=== PATIENT | male | born 1940 | race Caucasian/White ===

== ENCOUNTER 2019-05-20 07:39 | Emergency (ER) | payer MEDICARE, OTHER ==
[~2019-05-20] VITALS: Ht 172.7 cm; Wt 192.8 kg
[~2019-05-20 07:39] MED LIST: AMOX TR-K CLV1 EAC1 PO; ASPIR-LOW81 MG PO; BACTRIM DS TAB1 EACH PO; CIPRO500 MG PO; D3 + K2 DOTS 11 EACH PO; FOLIC ACID1 MG PO; HUMIRA10 MG/0.2 SQ; KEFLEX500 MG PO; METHOTREXATE2.5 MG PO; OMEGA-31000 MG PO; SIMVASTATIN5 MG PO; TERAZOSIN HCL2 MG PO; VICODIN 5-3001 EACH PO
--- OUTSIDE RECORDS SUMMARY | 2019-05-20 07:42 | XMS ---
PreManage Notification: MARTIN ZEPEDA Security Filemaker Developer Events No recent Security Events currently on file [facility] There are no care providers on record at this time. [facility] has no Care Guidelines for this patient. Iveth VISIT COUNT (12 MO.) 1 RIKCY Sen TOTAL 1 NOTE: Visits indicate total known visits. ED/UCC VISIT TRACKING (12 MO.) 05/20/2019 07:39 [facility] [place] TYPE: Emergency COMPLAINT: - SWOLLEN TESTICLES INPATIENT VISIT TRACKING (12 MO.) No inpatient visits to display in this time frame [id number]
[2019-05-20] MEDS ORDERED: PRINIVIL10 MG PO (07:58)
[2019-05-20] MEDS ORDERED: QMIIZ ODT15 MG PO (07:58)
[2019-05-20] MEDS ORDERED: CEFUROXIME500 MG PO (07:59)
== END 2019-05-20 19:42 | disposition short-term general hospital (02) ==
LOC: ED 07:39
DX: N49.2 Inflammatory disorders of scrotum (principal); K40.20 Bilateral inguinal hernia, without obstruction or gangrene, not specified as recurrent; E66.01 Morbid (severe) obesity due to excess calories; Z79.899 Other long term (current) drug therapy; Z79.82 Long term (current) use of aspirin; Z87.891 Personal history of nicotine dependence
CPT/HCPCS: 72192; 80053; 81001; 83605; 85025; 85651; 96365; 96366; 96375; 96376; 99285-25; J1170; J2543; J7040; J7121

== ENCOUNTER 2019-11-29 09:58 | Emergency (ER) | payer MEDICARE ==
[~2019-11-29] VITALS: Ht 172.7 cm; Wt 179.6 kg
--- OUTSIDE RECORDS SUMMARY | ~2019-11-29 | XMS | Encounter Summary ---
Demographics + + + | Address | [address] | | | [place] [address] | + + + | Home Phone | | + + + | Preferred Language | Unknown | + + + | Marital Status | | + + + | Nondenominational Affiliation | 1077 | + + + | Race | White | + + + | Ethnic Group | Not or | + + + Author + + + | Author | [facility] | | | and [place] | + + + | Organization | [facility] | | | and [place] | + + + | Address | Unknown | + + + | Phone | Unavailable | + + + Support + + + + + | Name | Relationship | Address | Phone | + + + + + | Angela Levy | ECON | [address] | | | | | [place], [place] | | | | | [address] | | + + + + + Care Team Providers + +------+ + | Care Inspecting Supervisor Name | Role | Phone | + +------+ + PCP | Unavailable | + +------+ + Encounter Details +--------+ + + + + | Date | Type | Department | Care Team | Description | +--------+ + + + + | 03/15/ | Hospital | C GENERIC OP | [facility] | BRACHIAL NEURITIS | | 2001 | Encounter | CONVERSION DEP [address] | [address] | NOS | | | | [place] | Dr. Christiansen C | | | | | [place], [place] | [place] [address] | | | | | [address] | [phone] | | | | | [phone] | | | +--------+ + + + + Social History + +-------+ +--------+------+ | Tobacco Use | Types | Packs/Day | Years | Date | | | | | Used | | + +-------+ +--------+------+ | Never Assessed | | | | | + +-------+ +--------+------+ + + + | Sex Assigned at | Date Recorded | | | | + + + | Not on file | | + + + documented as of this encounter Plan of Treatment Not on filedocumented as of this encounter Visit Diagnoses + + | Diagnosis | + + | Brachial neuritis or radiculitis NOS Brachial neuritis or radiculitis nos | + + documented in this encounter"
--- OUTSIDE RECORDS SUMMARY | ~2019-11-29 | XMS | Encounter Summary ---
Demographics + + + | Address | [address] | | | [place] [address] | + + + | Home Phone | | + + + | Preferred Language | Unknown | + + + | Marital Status | | + + + | Pentecostal Affiliation | 1077 | + + + | Race | White | + + + | Ethnic Group | Not or | + + + Author + + + | Author | [facility] | | | and [place] | + + + | Organization | [facility] | | | [...] [place] | | | | | [address] | | + + + + + Care Team Providers + +------+ + | Care Research Assistant Professor Name | Role | Phone | + [...] | | | | | | | AL REMV | | | | | | [...] + + + + | 08/21/ | Hospital | [facility] | Landon Bernard | | | 2019 | Encounter | MED CTR OR INTRA OP | [address] | | | | | [address] | [place] | | | | | [place] | [place] [address] | | | | | [address] | [phone] | | | | | [phone] | | | +--------+ + + + + Social History + + [...] symptoms, immediately call your eye doctor or [facility] at (dial "9" after hours [...] | 0 | 06/19/19 | | | (PRINIVIL, ZESTRIL) | times daily. 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), right eye Post-op Diagnosis: same Procedure: Cataract extraction by phacoemulsification with intraocular lens implant, right eye (04381) Implant: Pelaez PCB00 18.0 D, SN [id number] Surgeon: Landon Bernard MD Anesthesia: Monitored Anesthesia Care Technique/Procedure Description: After the patient's eye prepped and draped in the usual [facility] ophthalmic manner, a lid speculum was [...] + | Diagnosis | + + | Sleep apnea Unspecified sleep apnea | + + | Morbid obesity with BMI of 60.0-69.9, adult (HCC) | + + documented in this encounter Administered Medications + +--------+---------+------+------+------+ | Medication Order | MAR | Action | Dose | Rate | Site | | | Action | Date | | | | + +--------+---------+------+------+------+ + +---+ | albuterol 2.5 mg/3 mL nebulizer | | | solution 2.5 mg 2.5 mg, | | | Nebulization, ONCE PRN, Wheezing, | | | Starting Mon08/21/18 at 1302, For | | | 1 [...] glucose < 50, | | | Starting 08/21/18 at 1059, | | | Repeat in 15 min if blood glucose | | | remains < 70 mg/dL. Repeat | | | blood glucose in 30 min once | | | blood glucose > 70., Pre-op | | + +---+ | | | + +---+ + + + +---+---+---+ | lactated ringers (LR) infusion | Continue | 08/22/19 | | | | | at 10-100 mL/hr, Intravenous, | d by | 19 12:31 | | | | | CONTINUOUS, Starting 08/21/18 | Anesthes | PM PDT | | [...] PDT | | | | +-------+ +--------+---+---+ + +---+ | | | [...] | | +-------+ +--------+---+---+ | Given | 06/04/20 | 1 drop | | | | [...] history of PONV, Starting | | | 08/21/18 at 1059, For 1 dose, | | [...] | Intravenous, CONTINUOUS, Starting | | | Mon08/21/18 at 1115, TKO. Use | | | this instead of LR if patient is | | | on dialysis., Pre-op | | + +---+ | | | + +---+ + +-------+ +--------+---+---+ | tropicamide (MYDRIACYL) 1% [...]
--- OUTSIDE RECORDS SUMMARY | ~2019-11-29 | XMS | Clinical Summary ---
Demographics + + + | Address | [address] | | | [place] [address] | + + + | Home Phone | | + + + | Preferred Language | Unknown | + + + | Marital Status | | + + + | Islam Affiliation | 1077 | + + + | Race | White | + + + | Ethnic Group | Not or | + + + Author + + + | Author | [facility] | | | and [place] | + + + | Organization | [facility] | | | [...] [place] | | | | | [address] | | + + + + + Care Team Providers + +------+ + | Care Almond Pan Finisher Name | Role | Phone | + [...] Right: | LEMA | | 07/19/ | [id number] | | 18.0 - [id number]: | c | Eye | MEDICAL | | 2020 | 0180 | | Qty: 1 on 08/21/2018 by | | | OPTICS - | | | /62357 | | Landon Bernard MD at | | | [place] | | | [address] | | [facility] | | | | | | / | | [facility] | | | | | | | [...] +--------+-------+---------+--------+ | [employer] | [place] | [phone] | | | | Indemn | | [...] + +--------+ +--------+ + + | Tristen Levy | Person | Self | [birth year] | [address] | | | al/Fam | | 1941 | [phone] | [place] | | | [place] | | | 4 (Home) | [address] | + +--------+ +--------+ + + | Tristen Levy | Person | Self | [birth year] | | [address] | | | al/Fam | | 1941 | [phone] | [place] | | | [place] | | | 4 (Home) | [address] | + +--------+ +--------+ + + Advance Directives + + + + + | Type | Date Recorded | Patient | Explanation | | | | Wet Room Supervisor | | + + + + + | Power of | | | | | Automotive Painter Helper | | | | + + + [...]
--- OUTSIDE RECORDS SUMMARY | ~2019-11-29 | XMS | Encounter Summary ---
Demographics + + + | Address | [address] | | | [place] [address] | + + + | Home Phone | | + + + | Preferred Language | Unknown | + + + | Marital Status | | + + + | Baptist Affiliation | 1077 | + + + | Race | White | + + + | Ethnic Group | Not or | + + + Author + + + | Author | [facility] | | | and [place] | + + + | Organization | [facility] | | | [...] [place] | | | | | [address] | | + + + + + Care Team Providers + +------+ + | Care Power Generation Turbine Room Operator Name | Role | Phone | + [...] | | | | | | | [place] [facility] | | | | | | [...] | | | | | [address] | [address] | | | | | [place] | [place] [address] | | | | | [address] | [phone] | | | | | [phone] | | | +--------+ + + + [...] 08/21/18 1325 by | | eral | [id number] catheter system; | Cortes Keys RN | [...] EVALUATION Tristen Levy 77 y.o. male 1940 [id number] Procedure(s) RIGHT EXTRACTION CATARACT WITH LENS IMPLANT [...] signed by Ras Stovall MD 08/21/2018 13:14 [facility] nesthesia Preprocedure Evaluation - Ras Stovall MD - 2018 11:00 AM PDT ANESTHESIA PREANESTHESIA EVALUATION Tristen Levy 77 y.o. male 1940 [id number] Procedure(s): RIGHT EXTRACTION CATARACT WITH LENS IMPLANT [...]
--- OUTSIDE RECORDS SUMMARY | ~2019-11-29 | XMS | Encounter Summary ---
Demographics + + + | Address | [address] | | | [place] [address] | + + + | Home Phone | | + + + | Preferred Language | Unknown | + + + | Marital Status | | + + + | Mormon Affiliation | 1077 | + + + | Race | White | + + + | Ethnic Group | Not or | + + + Author + + + | Author | [facility] | | | and [place] | + + + | Organization | [facility] | | | and [...] [place], [place] | | | | | [address] | | + + + + + Care Team Providers + +------+ + | Care Family Court Justice Name | Role | Phone | + +------+ + PCP | Unavailable | + +------+ + Encounter Details +--------+ + + + + | Date | Type | Department | Care Team | Description | +--------+ + + + + | 04/04/ | Hospital | [facility] | Zeus Sanz MD | | | 2002 - | Encounter | CENTER SURGICAL [address] | [address] | | | | | [place] | [address], | | | 04/06/ | | [place] | [place] [address] | | | 2002 | | [address] | [phone] | | | | | [phone] | | | +--------+ + + + [...]
--- OUTSIDE RECORDS SUMMARY | ~2019-11-29 | XMS | Encounter Summary ---
Demographics + + + | Address | [address] | | | [place] [address] | + + + | Home Phone | | + + + | Preferred Language | Unknown | + + + | Marital Status | | + + + | Episcopalian Affiliation | 1077 | + + + | Race | White | + + + | Ethnic Group | Not or | + + + Author + + + | Author | [facility] | | | and [place] | + + + | Organization | [facility] | | [...] [place], [place] | | | | | [address] | | + + + + + Care Team Providers + +------+ + | Care Cooker Mechanic Name | Role | Phone | + +------+ + PCP | Unavailable | + +------+ + Encounter Details +--------+ + + + + | Date | Type | Department | Care Team | Description | +--------+ + + + + | 04/24/ | Hospital | C GENERIC OP | Zeus Sanz MD | | | 2002 | Encounter | CONVERSION DEP [address] | [address] | | | | | [place] | [address] [place], | | | | | [place], [place] | [place] [address] | | | | | [address] | [phone] | | | | | [phone] | | | +--------+ + + + [...]
--- OUTSIDE RECORDS SUMMARY | ~2019-11-29 | XMS | Encounter Summary ---
Demographics + + + | Address | [address] | | | [place] [address] | + + + | Home Phone | | + + + | Preferred Language | Unknown | + + + | Marital Status | | + + + | Advent Affiliation | 1077 | + + + [...] [place], [place] | | | | | [address] | | + + + + + Care Team Providers + +------+ + | Care Process Technician Name | Role | Phone | + +------+ + PCP | Unavailable | + +------+ + Encounter Details +--------+ + + + + | Date | Type | Department | Care Team | Description | +--------+ + + + + | 04/01/ | Hospital | C GENERIC OP | Zeus Sanz MD | PREOP CARDIOVASC | | 2002 | Encounter | CONVERSION [address] | [address] | EXAM | | | | [address] | [address] [place], | | | | | [place], [place] | [place] [address] | | | | | [address] | [phone] | | | | | [phone] | | | +--------+ + + + [...]
--- OUTSIDE RECORDS SUMMARY | ~2019-11-29 | XMS | Encounter Summary ---
Demographics + + + | Address | [address] | | | [place] [address] | + + + | Home Phone | | + + + | Preferred Language | Unknown | + + + | Marital Status | | + + + | Scientologist Affiliation | 1077 | + + + | Race | White | + + + | Ethnic Group | Not or | + + + Author + + + | Author | [facility] | | | and [place] | + + + | Organization | [facility] | | | [...] [place], [place] | | | | | [address] | | + + + + + Care Team Providers + +------+ + | Care Chief Librarian Extension Department Name | Role | Phone | + [...] | | | [address] | [place], [place] | | | | | [place], [place] | [address] | | | | | [address] | | | | | | [phone] | | | +--------+ + + + [...]
--- OUTSIDE RECORDS SUMMARY | ~2019-11-29 | XMS | Encounter Summary ---
Demographics + + + | Address | [address] | | | [place] [address] | + + + | Home Phone | | + + + | Preferred Language | Unknown | + + + | Marital Status | | + + + | Mandaen Affiliation | 1077 | + + + | Race | White | + + + | Ethnic Group | Not or | + + + Author + + + | Author | [facility] | | | and [place] | + + + | Organization | [facility] | | | [...] [place] | | | | | [address] | | + + + + + Care Team Providers + +------+ + | Care Travel Registered Nurse Nicu Name | Role | Phone | + [...] LENS | | | | [address] | [place] | IMPLANT | | | | [place] | [place] [address] | | | | | [address] | [phone] | | | | | [phone] | | | +--------+---------+ + + + [...] symptoms, immediately call your eye doctor or [facility] at (dial "9" [...] by: Landon Bernard MD, 08/21/2018 12:30 [facility] documented in t his encounter Miscellaneous Notes Op Note - Landon Bernard MD - 08/21/2018 12:57 PM PDTPre-op Diagnosis: 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
--- OUTSIDE RECORDS SUMMARY | ~2019-11-29 | XMS | Encounter Summary ---
Demographics + + + | Address | [address] | | | [place] [address] | + + + | Home Phone | | + + + | Preferred Language | Unknown | + + + | Marital Status | | + + + | Adventist Affiliation | 1077 | + + + [...] [place], [place] | | | | | [address] | | + + + + + Care Team Providers + +------+ + | Care Presales Consultant Name | Role | Phone | + +------+ + PCP | Unavailable | + +------+ + Encounter Details +--------+ + + + + | Date | Type | Department | Care Team | Description | +--------+ + + + + | 05/15/ | Hospital | [facility] | Zeus Sanz MD | | | 2002 | Encounter | CONVERSION DEP [address] | [address] | | | | | [place] | [address] [place], | | | | | [place], [place] | [place] [address] | | | | | [address] | [phone] | | | | | [phone] | | | +--------+ + + + [...]
--- OUTSIDE RECORDS SUMMARY | ~2019-11-29 | XMS | Encounter Summary ---
Demographics + + + | Address | [address] | | | [place] [address] | + + + | Home Phone | | + + + | Preferred Language | Unknown | + + + | Marital Status | | + + + | Taoism Affiliation | 1077 | + + + [...] [place], [place] | | | | | [address] | | + + + + + Care Team Providers + +------+ + | Care Waxed Bag Machine Operator Name | Role | Phone | + +------+ + PCP | Unavailable | + +------+ + Encounter Details +--------+ + + + + | Date | Type | Department | Care Team | Description | +--------+ + + + + | 02/20/ | Hospital | [facility] | | BRACHIAL NEURITIS | | 2001 | Encounter | CONVERSION DEP [address] | | [address] | | | | [place] | | | | | | [place] | | | | | | [address] | | | | | | [phone] | | | +--------+ + + + [...]
[~2019-11-29 09:58] MED LIST changes: +CEFUROXIME500 MG PO; +PRINIVIL10 MG PO; +QMIIZ ODT15 MG PO
--- OUTSIDE RECORDS SUMMARY | 2019-11-29 10:02 | XMS ---
PreManage Notification: MARTIN ZEPEDA Security Research Management Associate Events No recent Security Events currently on file CRITERIA MET - [facility] CARE PROVIDERS DANIEL VEGA Dentist: Software Development Specialist 05/21/2019-Current [place]EL[place] PHONE: [phone] Daniel Vega Orthopaedic Surgery 05/21/2019-Current PHONE: [phone] [facility] has no Care Guidelines for this patient. Care History Medical/Surgical 05/21/2019 [facility] \T\middot;\T\nbsp; PATIENT IS A -RECEIVES [place] THROUGH [place]. \T\middot;\T\nbsp; Location: [address], [place] [address]- E.D. VISIT COUNT (12 MO.) 2 RICKY Sen TOTAL 2 NOTE: Visits indicate total known visits. ED/UCC VISIT TRACKING (12 MO.) 11/29/2019 09:59 [facility] [place] TYPE: Emergency COMPLAINT: - WOUND CHECK 05/20/2019 07:39 [facility] Castro [place] TYPE: Emergency COMPLAINT: - SWOLLEN TESTICLES DIAGNOSES: - Inflammatory disorders of scrotum - Morbid (severe) obesity due to excess calories - termite exterminator (current) use of aspirin - Personal history of nicotine dependence - Testicular pain, unspecified - Bilateral inguinal hernia, without obstruction or gangrene, n - Other termite helper (current) drug therapy INPATIENT VISIT TRACKING (12 MO.) 06/14/2019 06:00 [facility] [place] TYPE: Urology DIAGNOSES: - Other specified disorders of the male genital organs 05/21/2019 00:18 [facility] [place] TYPE: General Medicine DIAGNOSES: - Cellulitis, unspecified - Scrotal abscess, Inguinal Hernia - Cellulitis of other sites [id number]
[2019-11-29] MEDS ORDERED: KEFLEX500 MG PO (10:36)
== END 2019-11-29 11:00 | disposition home or self-care (01) ==
LOC: ED 09:58
DX: L03.116 Cellulitis of left lower limb (principal); I10 Essential (primary) hypertension; E66.01 Morbid (severe) obesity due to excess calories; Z88.8 Allergy status to other drugs, medicaments and biological substances; Z79.899 Other long term (current) drug therapy; Z79.82 Long term (current) use of aspirin
CPT/HCPCS: 99283

== ENCOUNTER 2019-12-22 23:03 | Emergency (ER) | payer MEDICARE ==
[~2019-12-22] VITALS: Ht 172.7 cm; Wt 179.6 kg
--- OUTSIDE RECORDS SUMMARY | ~2019-12-22 | XMS | Encounter Summary ---
Demographics + + + | Address | [address] | | | [place] [address] | + + + | Home Phone | | + + + | Preferred Language | Unknown | + + + | Marital Status | | + + + | Sabianism Affiliation | 1077 | + + + | Race | White | + + + | Ethnic Group | Not or | + + + Author + + + | Author | [facility] | | | and [place] | + + + | Organization | [facility] | | | and [place] | + + + | Address | Unknown | + + + | Phone | Unavailable | + + + Support + + + + + | Name | Relationship | Address | Phone | + + + + + | Angela Levy | ECON | [address] | | | | | [place] | | | | | [address] | | + + + + + Care Team Providers + +------+ + | Care Skating Rink Ice Maker Name | Role | Phone | + +------+ + | Daniel Lam MD | PCP | | + +------+ + Reason for Visit Auth/Cert +--------+--------+ + + + + | Status | Reason | Specialty | Diagnoses / | Referred By | Referred To | | | | | Procedures | Contact | Contact | +--------+--------+ + + + + | | | | Diagnoses | | | | | | | 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 | | | | | | | right eye | | | | | | | Procedures | | | | | | | MA REMV | | | | | | | CATARACT | | | | | | | EXTRACAP,INS | | | | | | | ERT LENS | | | | | | | RIGHT | | | | | | | EXTRACTION | | | | | | | CATARACT | | | | | | | WITH OR | | | | | | | WITHOUT LENS | | | | | | | IMPLANT | | | +--------+--------+ + + + + Encounter Details +--------+ + + + + | Date | Type | Department | Care Team | Description | +--------+ + + + + | 08/21/ | Anesthesia | [facility] | Ras Stovall | | | 2019 | Event | [facility] | MD Eloise [address] | | | | | [address] | [address] | | | | | [place] | [place] [address] | | | | | [address] | [phone] | | | | | [phone] | | | +--------+ + + + + Anesthesia Record + + + + + | Procedure Name | Responsible | Anesthesia Start | Anesthesia Stop Time | | | Anesthesiologist | Time | | + + + + + | RIGHT EXTRACTION | Ras Stovall, | 08/21/18 1230 | 08/21/18 1302 | | CATARACT WITH LENS | MD | | | | IMPLANT (Right Eye) | | | | + + + + + +----+---+ + + | Da | T | Event | Comment | | te | i | | | | | m | | | | | e | | | +----+---+ + + | 06 | 1 | | | | /0 | 1 | | | | 4/ | 4 | | | | 20 | 8 | | | | 19 | | | | +----+---+ + + | | 1 | An Checkout | Pre-use anesthesia machine/equipment checkout. | | | 2 | | | | | 3 | | | | | 0 | | | +----+---+ + + | | 1 | An Start | Reassessment prior to anesthesia induction/procedure. | | | 2 | | | | | 3 | | | | | 0 | | | +----+---+ + + | | 1 | Preoxygenat | | | | 2 | ed | | | | 3 | | | | | 5 | | | +----+---+ + + | | 1 | AN | Per surgeon request | | | 2 | Antibiotic | | | | 3 | declined | | | | 5 | | | +----+---+ + + | | 1 | Pre-Procedu | | | | 2 | ral Timeout | | | | 3 | Completed | | | | 8 | | | +----+---+ + + | | 1 | First | | | | 2 | Inc/Proc St | | | | 4 | | | | | 6 | | | +----+---+ + + | | 1 | an stop | Pt tolerated procedure very well with minimal sedation needed. | | | 2 | data | | | | 5 | | | | | 5 | | | +----+---+ + + | | 1 | An Stop | Patient handed off to recovery nurse. | | | 0 | | | | | 2 | | | +----+---+ + + +------+ | Meds | +------+ + +--------+ | Name | Total | + +--------+ | midazolam | 2 mg | + +--------+ | lactated ringers (LR) infusion | 500 mL | + +--------+ + + | Name | + + | N2O Flow Rate (L/Min) | + + | O2 Flow Rate (L/Min) | + + | Insp O2 | + + | Exp SEV | + + | Air Flow Rate (L/Min) | + + + + | No blood administrations on file. | + + +--------+ + + + | Type | Details | Placement | Removal | +--------+ + + + | Wound | 08/21/18; 1019; Incision; Right; | 08/21/18 1019 by | 08/21/18 1325 by | | | eye; Healing; 08/21/18; 1325 | Jayden Sears RN | Natasha De RN | +--------+ + + + | Periph | 08/21/18; 1135; Right; Forearm; | 08/21/18 1135 by | 08/21/18 1325 by | | eral | [id number] catheter system; | Cortes Keys RN | Natasha De RN | | IV | 20 gauge, 1 1/2 in length; | | | | | distraction, intradermal | | | | | injection, tolerated well, | | | | | appears comfortable; short term | | | | | use; 08/21/18; 1325 | | | +--------+ + + + documented in this encounter Social History + + + +--------+ + | Tobacco Use | Types | Packs/Day | Years | Date | | | | | Used | | + + + +--------+ + | Former Smoker | Cigarettes | 1.5 | 24 | Quit: 1974 | + + + +--------+ + + +---+---+---+ | Smokeless Tobacco: | | | | | Never Used | | | | + +---+---+---+ + + +---------+ + | Alcohol Use | Drinks/Week | oz/Week | Comments | + + +---------+ + | Never | | | | + + +---------+ + + + + + | Alcohol Habits | Answer | Date Recorded | + + + + | How often do you have a drink containing | Never | 07/31/2018 | | alcohol? | | | + + + + | How many drinks containing alcohol do you | Not asked | | | have on a typical day when you are | | | | drinking? | | | + + + + | How often do you have six or more drinks on | Not asked | | | one occasion? | | | + + + + + + + | Sex Assigned at | Date Recorded | | | | + + + | Not on file | | + + + documented as of this encounter [place] Notes Anesthesia Postprocedure Evaluation - Ras Stovall MD - 08/21/2018 1:14 PM PDTForm atting of this note might be different from the original. ANESTHESIA POSTANESTHESIA EVALUATION Tristen Levy 77 y.o. male 1940 [id number] Procedure(s) RIGHT EXTRACTION CATARACT WITH LENS IMPLANT (Right Eye) Cooperates? Yes Mental Status Performs simple tasks. Respiratory Satisfactory - Airway patent (self maintained). Cardiovascular Satisfactory - Blood pressure and heart rate acceptable Temperature Satisfactory Pain Satisfactory N/V Control Satisfactory Hydration Satisfactory - No signs of dehydration Complications None apparent Vitals Value Taken Time Temp 37 C (98.6 F) 08/21/2018 12:59 Pulse 65 08/21/2018 13:13 Resp BP 180/75 08/21/2018 13:01 Arterial Line BP Arterial Line BP 2 SpO2 98 % 08/21/2018 13:13 Vitals shown include unvalidated device data. Electronically signed by Ras Stovall MD 08/21/2018 13:14 [facility] nesthesia Preprocedure Evaluation - Ras Stovall MD - 2018 11:00 AM PDT ANESTHESIA PREANESTHESIA EVALUATION Tristen Levy 77 y.o. male 1940 [id number] Procedure(s): RIGHT EXTRACTION CATARACT WITH LENS IMPLANT (Right Eye) Medical,anesthesia, drug, allergy histories reviewed, NPO status verified. . Review of Systems / Med History Anesthesia History (-) PONV, difficult intubation, malignant hyperthermia . Cardiovascular (+) hypertension, (-) coronary artery disease. . Pulmonary No acute pulmonary concerns. (+) supplemental oxygen (3lpm at noc).(-) Chronic Obstructive Pulmonary Disease. (+) sleep apnea (cpap intolerant). (+) Sleep apnea history/interventions: known. (-) asthma. (+) tobac co use. (+) ex-smoker: 1973. Gastrointestinal/Hepatic (+) hypercholesterolemia. Renal (-) end-stage renal disease. 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 (+) obesity: morbid BMI 40+ Neuromuscular (+) arthritis. Physical Exam Airway MP II, Mouth opening >2 FB. Neck: full ROM, Dental ; Grossly normal except where noted b elow. (+) dentures-upper and Poor dentition. CV Rhythm regular. Rate Normal. (-) murmur. Pulm Clear to auscultation bilaterally. Neuro Grossly normal. Other Thick neck but airway appears normal, most of weight carried around lower abdomen Anesthesia Plan ASA 4 (BMI 64, LUCIA with O2) Type: MAC. Induction: Intravenous. Potential problems: None anticipated. Monitors: Standard ASA monitors. Consent statement:Anesthetic plan, alternatives, risks and benefits discussed with patient. Risks discussed included (but were not limited to): perioperative CV events, respiratory ev ents, heart problems,. Consenting person understands and agrees to proceed . PARQ. Discussed MAC anesthesia with patient, including brief dose of IV medication administratio n with planned intra-op emergence as surgeon prefers to be interactive with patients intra-o p. Patient understands that minimal sedation will be given due to high BMI and LUCIA. Patient acknowledges understanding of planned anesthetic technique. . Electronically Signed by: Ras Stovall MD ESig date/time: 08/21/2018 11:00 documented in thi s encounter Plan of Treatment Not on filedocumented as of this encounter Visit Diagnoses Not on filedocumented in this encounter Administered Medications + + + +------+------+------+ | Medication Order | MAR | Action | Dose | Rate | Site | | | Action | Date | | | | + + + +------+------+------+ | lactated ringers (LR) infusion | Continue | 08/22/19 | | | | | at 10-100 mL/hr, Intravenous, | d by | 19 12:31 | | | | | CONTINUOUS, Starting 6/4/19 | Anesthes | PM PDT | | | | | at 1115, TKO. Use this instead of | ia | | | | | | NS unless dialysis patient., | | | | | | | Pre-op | | | | | | + + + +------+------+------+ +---------+ +---+-------+---+ | New Bag | 08/22/19 | | 100 | | | | 19 11:34 | | mL/hr | | | | AM PDT | | | | +---------+ +---+-------+---+ +---+---+ | | | +---+---+ + +-------+ +--------+---+---+ | midazolam (VERSED) 1 mg/mL | Given | 08/22/19 | 0.5 mg | | | | injection Intravenous, PRN, | | 19 12:52 | | | | | Starting Mon08/21/18 at 1231, | | PM PDT | | | | | Anesthesia Intra-op | | | | | | + +-------+ +--------+---+---+ +-------+ +--------+---+---+ | Given | 08/22/19 | 0.5 mg | | | | | 19 12:46 | | | | | | PM PDT | | | | +-------+ +--------+---+---+ | Given | 08/22/19 | 1 mg | | | | | 19 12:35 | | | | | | PM PDT | | | | +-------+ +--------+---+---+ +---+---+ | | | +---+---+ documented in this encounter"
--- OUTSIDE RECORDS SUMMARY | ~2019-12-22 | XMS | Encounter Summary ---
Demographics + + + | Address | [address] | | | [place] [address] | + + + | Home Phone | | + + + | Preferred Language | Unknown | + + + | Marital Status | | + + + | [employer] Affiliation | 1077 | + + + | Race | White | + + + | Ethnic Group | Not or | + + + Author + + + | Author | [facility] | | | and [place] | + + + | Organization | [facility] | | [...] [place], [place] | | | | | [address] | | + + + + + Care Team Providers + +------+ + | Care Lens Examiner Name | Role | Phone | + +------+ + PCP | Unavailable | + +------+ + Encounter Details +--------+ + + + + | Date | Type | Department | Care Team | Description | +--------+ + + + + | 02/20/ | Hospital | [facility] | | BRACHIAL NEURITIS | | 2001 | Encounter | [address] | | [address] | | | | [address] | | | | | | [place] | | | | | | [phone] | | | | | | [phone] | | | +--------+ + + + [...]
--- OUTSIDE RECORDS SUMMARY | ~2019-12-22 | XMS | Encounter Summary ---
Demographics + + + | Address | [address] | | | [place] [address] | + + + | Home Phone | | + + + | Preferred Language | Unknown | + + + | Marital Status | | + + + | Moravian Affiliation | 1077 | + + + | Race | White | + + + | Ethnic Group | Not or | + + + Author + + + | Author | [facility] | | | and [place] | + + + | Organization | [facility] | | | and [...] [place] | | | | | [address] | | + + + + + Care Team Providers + +------+ + | Care Storeroom Attendant Name | Role | Phone | + [...] | | | | | | | HI REMV | | | | | | [...] +--------+--------+ + + + + Encounter Details +--------+---------+ + + + | Date | Type | Department | Care Team | Description | +--------+---------+ + + + | 08/21/ | Surgery | [facility] | Landon Bernard | RIGHT EXTRACTION | | 2019 | | [facility] | [facility] [place] [address] | CATARACT WITH LENS | | | | [address] | [place] | IMPLANT | | | | [place] | [place] [address] | | | | | [address] | [phone] | | | | | [phone] | | | +--------+---------+ + + + Social History + + + +--------+ + [...] + + documented as of this encounter Last Filed Vital Signs + + + + + | Vital Sign | Reading | Time Taken | Comments | + + + + + | Blood Pressure | 180/75 | 08/21/2018 12:59 PM | | | | | PDT | | + + + + + | Pulse | 72 | 08/21/2018 12:59 PM | | | | | PDT | | + + + + + | Temperature | 37 C (98.6 F) | 08/21/2018 12:59 PM | | | | | PDT | | + + + + + | Respiratory Rate | 21 | 08/21/2018 10:53 AM | | | | | PDT | | + + + + + | Oxygen Saturation | 98% | 08/21/2018 12:59 PM | | | | | PDT | | + + + + + | Inhaled Oxygen | - | - | | | Concentration | | | | + + + + + | Weight | 191.1 kg (421 lb 4.8 | 08/21/2018 10:53 AM | | | | oz) | PDT | | + + + + + | Height | 172.7 cm (5' 8") | 08/21/2018 10:53 AM | | | | | PDT | | + + + + + | Body Mass Index | 64.06 | 08/21/2018 10:53 AM | | | | | PDT | | + + + + + documented in this encounter Discharge Instructions Instructions Landon Bernard MD - 08/21/2018FOLLOWING SURGERY: Wear the patch and shield until you get home or until your first post-op appointment, if same day. You may then discard the patch, but continue to wear the eye shield as noted tamika aldana. Do not drive for at least 24 hours (longer if vision isn't clear enough to be safe) If prescribed the following eyedrops to use after surgery, then use as follows: Prednisolone acetate 1% - Shake well before using. Place 1 drop in your surgery ey e 4 times daily and continue for 1 month after surgery. Ofloxacin 0.3% - Place 1 drop in your surgery eye 4 times daily and continue for 1 week after surgery. Close your eye for 3-5 minutes after each eye drop. If your surgery eye has a dry, irritated, or "foreign body" sensation, you may use cold compresses or preservative free artificial tears (in individual vials) as needed. Drink water to stay well-hydrated and to promote healing. Most people need 8 glasses of water daily. Use your preferred non-prescription pain medicine as needed for mild discomfort. You will have appointments with your eye doctor as scheduled in future weeks/months. Cici ng any eye drops you are taking to your first post-op appointment. THE FIRST DAYS AFTER SURGERY: The first few days are the most important after eye surgery t o be sure the eye heals well. Listed below are some things you should do or avoid doing: You may bend over, sleep on either side, read, go out to dinner, and resume most of your normal activities. Walking and gentle exercises are OK. Avoid strenuous activity for the first 3 days. Keep your eye clean with gentle lid scrubs and avoid wearing makeup for 3 days. Wear the eye shield for the first 3-4 nights to keep from bumping the eye while you are sleeping. Do not rub your eye. If you have an urge to rub your eye, wear the eye shield and jassi nue using it when sleeping for even the first week after surgery. Avoid dry, lucia or dirty environments for at least 3 days. You may shower, but keep you eye dry for 3 days. Avoid dunking your head under water. Avoid splashing your face or dunking your head under water for 3 days. You may shower, k eeping your eye dry. No swimming, water sports, Jacuzzi, spa, or pool for 1 week. EXPECTATIONS: You may experience strange sensations after surgery, such as numbness, halos around lights, blurred and/or double vision. These usually resolve in 2-6 hours. Your visi on will improve over time as your eye heals, but may fluctuate over the first few weeks. Re dness will usually be gone within a few weeks. A mild dry eye sensation may persist for eloise e months. IMPORTANT! If you have the following symptoms, immediately call your eye doctor or [facility] at (dial "9" after hours or on weekends): Bleeding or discharge from the eye. Vision suddenly becomes worse. Huge increase in floaters. Flashing lights or a curtain over part of or all of your vision. Severe pain not relieved by the pain reliever you've been instructed to take. Nausea, vomiting, chills, or fever over 100.4. documented in this encounter Medications at Time of Discharge + + + +---------+ + + | Medication | Sig | Dispensed | Refills | Start | End Date | | | | | | Date | | + + + +---------+ + + | albuterol | Inhale into the | | 0 | | | | (PROVENTIL HFA) 90 | lungs. | | | | | | mcg/puff inhaler | | | | | | + + + +---------+ + + | aspirin 81 mg | Take 81 mg by mouth | | 0 | | | | chewable tablet | Daily. | | | | | + + + +---------+ + + | ferrous fumarate | Take 324 mg by | | 0 | | | | (HEMOCYTE) 324 mg | mouth. | | | | | | tablet | | | | | | + + + +---------+ + + | | TAKE ONE TO TWO | | 0 | 04/17/20 | | | HYDROcodone-acetamin | TABLETS BY MOUTH | | | 19 | | | ophen (NORCO) 5-325 | EVERY 4 HOURS | | | | | | mg per tablet | NEEDED FOR PAIN | | | | | + + + +---------+ + + | ipratropium | Inhale 2 puffs into | | 0 | | | | (ATROVENT HFA) 17 | the lungs 4 times | | | | | | mcg/puff inhaler | daily as needed for | | | | | | | Wheezing. | | | | | + + + +---------+ + + | omega-3 acid ethyl | Take 2 g by mouth. | | 0 | | | | esters (LOVAZA) 1 g | | | | | | | capsule | | | | | | + + + +---------+ + + | simvastatin | Take 20 mg by mouth. | | 0 | | | | (ZOCOR) 20 mg tablet | | | | | | + + + +---------+ + + | terazosin (HYTRIN) | Take 2 mg by mouth. | | 0 | | | | 2 MG capsule | | | | | | + + + +---------+ + + | lisinopril | Take 5 mg by mouth 2 | | 0 | 06/19/19 | | | (PRINIVILGARYRIL) | times daily. | | | 19 | 0 | | 10 mg tablet | | | | | | + + + +---------+ + + documented as of this encounter H&P Landon Nelson MD - 08/21/2018 12:30 PM PDTSURGICAL INTERIM HISTORY & PHYSICAL UPDA TE Pt. Name/Age/: Tristen Levy 77 y.o. 1940 Date of admission: 08/21/2018 The current H&P was reviewed. The patient was reexamined. Re-evaluation of the patient co nfirms the necessity for the scheduled procedure. No change has occurred in the patient s condition since the H&P was completed less than 30 days ago. VERIFICATION OF CONSENT (PARQ) The patient was counseled regarding the procedure, its indications, risks, potential compli cations and alternatives. Any questions were answered. Consent was obtained. 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 Two side ports were made and the anterior chamber was filled with viscoelastic. A keratome was used to create t he main wound temporally. Utrata forceps were used for a capsulorhexis. After hydrodissectio n, the lens was phacoemulsified and residual cortex was aspirated. The artificial lens was p laced under viscoelastic which was then removed. The wounds were checked and found to be mildred ertight. Vigamox 0.1cc was placed in the anterior chamber. Triamcinolone 3mg was placed in the subconjunctival space. Pilocarpine 1% drops were placed on the eye. A patch and shield w ere placed over the eye. Postoperative Plan: The patient was sent to recovery in good condition. Complications: none Estimated Blood Loss: none documented in t his encounter Plan of Treatment Not on filedocumented as of this encounter Procedures + +--------+ + + + | Procedure Name | Priori | Date/Time | Associated Diagnosis | Comments | | | ty | | | | + +--------+ + + + | EXTRACTION CATARACT | | 08/21/2018 | Combined forms of | | | W/ OR W/O LENS | | 12:35 PM | age-related cataract | | | IMPLANT | | PDT | of right eye | | + +--------+ + + + documented in this encounter Visit Diagnoses + + | Diagnosis | + + | Combined forms of age-related cataract of right eye Other and combined forms of | | senile cataract | + + documented in this encounter Administered Medications + +--------+---------+------+------+------+ | Medication Order | MAR | Action | Dose | Rate | Site | | | Action | Date | | | | + +--------+---------+------+------+------+ + +---+ | albuterol 2.5 mg/3 mL nebulizer | | | solution 2.5 mg 2.5 mg, | | | Nebulization, ONCE PRN, Wheezing, | | | Starting e 08/21/18 at 1302, For | | | 1 dose, Notify anesthesia if | | | patient is wheezing and does not | | | have a history of asthma or COPD | | | or current smoking., | | | Post-op/Phase II | | + +---+ | | | + +---+ | albuterol-ipratropium 2.5-0.5 | | | mg/3 mL nebulizer solution 3 mL | | | 3 mL, Nebulization, ONCE PRN, | | | Wheezing, Starting 08/21/18 at | | | 1059, For 1 dose, Pre-op | | + +---+ | | | + +---+ | albuterol-ipratropium 2.5-0.5 | | | mg/3 mL nebulizer solution 3 mL | | | 3 mL, Nebulization, ONCE PRN, | | | Wheezing, Shortness of Breath, | | | Starting 08/21/18 at 1302, For | | | 1 dose, Post-op/Phase II | | + +---+ | | | + +---+ + +-------+ + +---+ + | balanced salts sterile | Given | 08/22/19 | 1 | | Surgical | | ophthalmic irrigation solution | | 19 12:46 | Applicat | | Site | | PRN, Starting 08/21/18 at 1246, | | PM PDT | ion | | | | Intra-op | | | | | | + +-------+ + +---+ + +---+---+ | | | +---+---+ + +-------+ +------+---+---+ | BSS 2.25mL + lidocaine PF 2% | Given | 08/22/19 | 1 mL | | | | 0.75mL + EPINEPHrine (1:1000) 1mL | | 19 12:46 | | | | | one step ophthalmic solution | | PM PDT | | | | | PRN, Starting 08/21/18 at 1246, | | | | | | | Intra-op | | | | | | + +-------+ +------+---+---+ + +---+ | | | + +---+ | dextrose 50% injection 12.5-25 | | | g 12.5-25 g, Intravenous, EVERY | | | 15 MIN PRN, Low Blood Sugar, Give | | | 12.5g (25 mL) IV if blood | | | glucose 50-69 mg/dL. Give 25g | | | (50 mL) IV if blood glucose < 50, | | | Starting e 08/21/18 at 1059, | | | Repeat in 15 min if blood glucose | | | remains < 70 mg/dL. Repeat | | | blood glucose in 30 min once | | | blood glucose > 70., Pre-op | | + +---+ | | | + +---+ + +-------+ +-------+---+---+ | hyaluronate & chondroitin | Given | 08/22/19 | 1 kit | | | | hyaluronate (DUOVISC) intraocular | | 19 12:47 | | | | | kit PRN, Starting [facility] 08/21/18 at | | PM PDT | | | | | 1247, Intra-op | | | | | | + +-------+ +-------+---+---+ +---+---+ | | | +---+---+ + + + +---+---+---+ | lactated ringers (LR) infusion | Continue | 08/22/19 | | | | | at 10-100 mL/hr, Intravenous, | d by | 19 12:31 | | | | | CONTINUOUS, Starting Mon08/21/18 | Anesthes | PM PDT | | | | | at 1115, TKO. Use this instead of | ia | | | | | | NS unless dialysis patient., | | | | | | | Pre-op | | | | | | + + + +---+---+---+ +---------+ +---+-------+---+ | New Bag | 08/22/19 | | 100 | | | | 19 11:34 | | mL/hr | | | | AM PDT | | | | +---------+ +---+-------+---+ +---+---+ | | | +---+---+ + +-------+ +--------+---+---+ | lidocaine (AKTEN) 3.5% | Given | 08/22/19 | 1 drop | | | | ophthalmic gel 1 drop 1 drop, | | 19 12:01 | | | | | Right Eye, Prior to Incision, | | PM PDT | | | | | Starting Mon08/21/18 at 1059, For | | | | | | | 2 doses, Begin after | | | | | | | proparacaine. Begin 10 minutes | | | | | | | prior to leaving SDS for | | | | | | | operating room. Repeat jelly just | | | | | | | prior to leaving SDS and Q10 | | | | | | | minutes until in the operating | | | | | | | room. Keep eye closed after | | | | | | | placing medication., Pre-op | | | | | | + +-------+ +--------+---+---+ +-------+ +--------+---+---+ | Given | 08/22/19 | 1 drop | | | | | 19 11:42 | | | | | | AM PDT | | | | +-------+ +--------+---+---+ +---+---+ | | | +---+---+ + +-------+ + +---+ + | lidocaine (XYLOCAINE) 2% jelly | Given | 08/22/19 | 1 | | Surgical | | (uro-jet) GIORGIO Starting [place] | | 19 12:46 | Applicat | | Site | | 08/21/18 at 1246, Intra-op | | PM PDT | ion | | | + +-------+ + +---+ + +---+---+ | | | +---+---+ + +-------+ +--------+---+ + | moxifloxacin (VIGAMOX) 0.5 % | Given | 08/22/19 | 0.5 mg | | [facility] | | intracameral injection PRN, | | 19 12:56 | | | t | | Starting Mon08/21/18 at 1256, | | PM PDT | | | | | Intra-op | | | | | | + +-------+ +--------+---+ + + +---+ | | | + +---+ | ondansetron (ZOFRAN) injection | | | 4 mg 4 mg, Intravenous, ONCE | | | PRN, Nausea, Starting Mon08/21/18 | | | at 1302, For 1 dose, | | | Post-op/Phase II | | + +---+ | | | + +---+ + +-------+ +--------+---+---+ | phenylephrine (AFIA-SYNEPHRINE) | Given | 08/22/19 | 1 drop | | | | 2.5% ophthalmic solution 1 drop | | 19 11:42 | | | | | 1 drop, Right Eye, Prior to | | AM PDT | | | | | Incision, Starting 08/21/18 at | | | | | | | 1059, For 3 doses, Begin after | | | | | | | proparacaine. 1 drop every 10 | | | | | | | minutes for 3 doses. (May | | | | | | | alternate every 5 minutes with | | | | | | | tropicamide) Remind patient to | | | | | | | keep eye closed after placing | | | | | | | each drop., Pre-op | | | | | | + +-------+ +--------+---+---+ +-------+ +--------+---+---+ | Given | 08/22/19 | 1 drop | | | | | 19 11:31 | | | | | | AM PDT | | | | +-------+ +--------+---+---+ | Given | 08/22/19 | 1 drop | | | | | 19 11:26 | | | | | | AM PDT | | | | +-------+ +--------+---+---+ +---+---+ | | | +---+---+ + +-------+ +--------+---+---+ | pilocarpine (ISOPTO CARPINE) 1% | Given | 08/22/19 | 1 drop | | | | ophthalmic solution PRN, | | 19 12:55 | | | | | Starting 08/21/18 at 1255, | | PM PDT | | | | | Intra-op | | | | | | + +-------+ +--------+---+---+ +---+---+ | | | +---+---+ + +-------+ +--------+---+---+ | povidone-iodine 5 % ophthalmic | Given | 08/22/19 | 1 drop | | | | solution PRN, Starting Tue | | 19 12:40 | | | | | 08/21/18 at 1240, Intra-op | | PM PDT | | | | + +-------+ +--------+---+---+ +---+---+ | | | +---+---+ + +-------+ +--------+---+---+ | proparacaine (ALCAINE) 0.5% | Given | 08/22/19 | 1 drop | | | | ophthalmic solution 1 drop 1 | | 19 11:26 | | | | | drop, Right Eye, Prior to | | AM PDT | | | | | Incision, Starting Mon08/21/18 at | | | | | | | 1059, For 1 dose, After placing | | | | | | | anesthetic, keep eye closed | | | | | | | except for when placing | | | | | | | additional medications. All other | | | | | | | drops/gel should follow this | | | | | | | drop., Pre-op | | | | | | + +-------+ +--------+---+---+ + +---+ | | | + +---+ | scopolamine (TRANSDERM-SCOP) 1 | | | mg/3 days 1 patch 1 patch, | | | Transdermal, PRN, adult patients | | | with history of PONV, Starting | | | Mon08/21/18 at 1059, For 1 dose, | | | PRN for adult patients <65 yo | | | with history of PONV. Hold for | | | patients with glaucoma, dementia, | | | altered mental status, or | | | history of allergy to | | | Scopolamine. Apply to mastoid | | | process behind ear. Each patch is | | | designed to deliver 1 mg over 3 | | | days. DO NOT CUT patch., Pre-op | | + +---+ | | | + +---+ | sodium chloride 0.9% (NS) | | | infusion at 10-100 mL/hr, | | | Intravenous, CONTINUOUS, Starting | | | 08/21/18 at 1115, TKO. Use | | | this instead of LR if patient is | | | on dialysis., Pre-op | | + +---+ | | | + +---+ + +-------+ +--------+---+ + | triamcinolone acetonide | Given | 08/22/19 | 2.5 mg | | [facility] | | (KENALOG-10) 10 mg/mL injection | | 19 12:56 | | | t | | PRN, Starting 08/21/18 at 1256, | | PM PDT | | | | | Intra-op | | | | | | + +-------+ +--------+---+ + +---+---+ | | | +---+---+ + +-------+ +--------+---+---+ | tropicamide (MYDRIACYL) 1% | Given | 08/22/19 | 1 drop | | | | ophthalmic solution 1 drop 1 | | 19 11:42 | | | | | drop, Right Eye, Prior to | | AM PDT | | | | | Incision, Starting 08/21/18 at | | | | | | | 1059, For 3 doses, Begin after | | | | | | | proparacaine. 1 drop every 10 | | | | | | | minutes for 3 doses. (May | | | | | | | alternate every 5 minutes with | | | | | | | phenylephrine) Remind patient to | | | | | | | keep eye closed after placing | | | | | | | each drop., Pre-op | | | | | | + +-------+ +--------+---+---+ +-------+ +--------+---+---+ | Given | 08/22/19 | 1 drop | | | | | 19 11:31 | | | | | | AM PDT | | | | +-------+ +--------+---+---+ | Given | 08/22/19 | 1 drop | | | | | 19 11:26 | | | | | | AM PDT | | | | +-------+ +--------+---+---+ +---+---+ | | | +---+---+ documented in this encounter
--- OUTSIDE RECORDS SUMMARY | ~2019-12-22 | XMS | Clinical Summary ---
Demographics + + + | Address | [address] | | | [place] [address] | + + + | Home Phone | | + + + | Preferred Language | Unknown | + + + | Marital Status | | + + + | Jehovah'S Witness Affiliation | 1077 | + + + | Race | White | + + + | Ethnic Group | Not or | + + + Author + + + | Author | [facility] | | | and [place] | + + + | Organization | [facility] | | [...] [place] | | | | | [address] | | + + + + + Care Team Providers + +------+ + | Care Computer Trainer Name | Role | Phone | + +------+ + | Daniel Lam MD | PCP | | + +------+ + Allergies No Known Allergies Medications + + + +---------+------+------+-------+ | Medication | Sig | Dispensed | Refills | Star | End | Statu | | | | | | t | Date | s | | | | | | Date | | | + + + +---------+------+------+-------+ | albuterol | Inhale into the | | 0 | | | Activ | | (PROVENTIL HFA) 90 | lungs. | | | | | e | | mcg/puff inhaler | | | | | | | + + + +---------+------+------+-------+ | ferrous fumarate | Take 324 mg by | | 0 | | | Activ | | (HEMOCYTE) 324 mg | mouth. | | | | | e | | tablet | | | | | | | + + + +---------+------+------+-------+ | | TAKE ONE TO TWO | | 0 | 04/1 | | Activ | | HYDROcodone-acetamin | TABLETS BY MOUTH | | | 7/20 | | e | | ophen (NORCO) 5-325 | EVERY 4 HOURS | | | 19 | | | | mg per tablet | NEEDED FOR PAIN | | | | | | + + + +---------+------+------+-------+ | omega-3 acid ethyl | Take 2 g by mouth. | | 0 | | | Activ | | esters (LOVAZA) 1 g | | | | | | e | | capsule | | | | | | | + + + +---------+------+------+-------+ | simvastatin | Take 20 mg by mouth. | | 0 | | | Activ | | (ZOCOR) 20 mg tablet | | | | | | e | + + + +---------+------+------+-------+ | terazosin (HYTRIN) | Take 2 mg by mouth. | | 0 | | | Activ | | 2 MG capsule | | | | | | e | + + + +---------+------+------+-------+ | aspirin 81 mg | Take 81 mg by mouth | | 0 | | | Activ | | chewable tablet | Daily. | | | | | e | + + + +---------+------+------+-------+ | ipratropium | Inhale 2 puffs into | | 0 | | | Activ | | (ATROVENT HFA) 17 | the lungs 4 times | | | | | e | | mcg/puff inhaler | daily as needed for | | | | | | | | Wheezing. | | | | | | + + + +---------+------+------+-------+ Active Problems + + + | Problem | Noted Date | + + + | Sleep apnea | 08/21/2018 | + + + + + | Overview: oxygen 3 liters at night | + + + + + | Morbid obesity with BMI of 60.0-69.9, adult | 08/21/2018 | + + + Social History + + [...] on file | | + + + Last Filed Vital Signs + + + + + | Vital Sign | Reading | Time Taken | Comments | + + + + + | Blood Pressure | 128/66 | 08/21/2018 1:50 PM | | | | | PDT | | + + + + + | Pulse | 64 | 08/21/2018 1:50 PM | | | | | PDT [...] + + + | Oxygen Saturation | 92% | 08/21/2018 1:50 PM | | | | | PDT [...] | | + + + + + Plan of Treatment + + + + + | Health Maintenance | Due Date | Last | Comments | | | | Done | | + + + + + | Hepatitis C | | | | | Screening | 2 | | | + + + + + | Vaccine: Zoster (1 | | | | | of 2) | 2 | | | + + + + + | Vaccine: | | | | | Pneumococcal 65+ (1 | 7 | | | | of 1 - PPSV23) | | | | + + + + + | Adult Annual | | | | | Wellness Visit | 0 | | | + + + + + | Vaccine: Influenza | | 12/19/19 | | | (#1) | 0 | 18, | | | | | 04/18/19 | | | | | 18, | | | | | 03/29/19 | | | | | 18, | | | | | Addition | | | | | al | | | | | history | | | | | exists | | + + + + + | Vaccine: | | 03/02/20 | | | Dtap/Tdap/Td (2 - | 2 | 12 | | | Td) | | | | + + + + + Implants + +--------+--------+ +--------+--------+--------+ | Implanted | Type | Area | Manufacture | Device | Shelf | Model | | | | | r | | Expira | / | | | | | | Identi | tion | Serial | | | | | | fier | Date | / Lot | + +--------+--------+ +--------+--------+--------+ | Lens Tecnis Preloaded Pcb | Generi | Right: | LEMA | | 07/19/ | [id number] | | 18.0 - [id number]: | c | Eye | MEDICAL | | 2020 | [id number] | | Qty: 1 on 08/21/2018 by | | | OPTICS - | | | /[id number] | | Landon Bernard MD at | | | [facility] | | | [id number] | | [facility] | | | | | | / | | [facility] | | | | | | | + +--------+--------+ +--------+--------+--------+ Results Not on filefrom Last 3 Months Insurance + +--------+ +--------+-------+---------+--------+ | Payer | Benefi | Subscriber | Effect | Phone | Address | Type | | | t Plan | ID | portillo | | | | | | / | | Dates | | | | | | Group | | | | | | + +--------+ +--------+-------+---------+--------+ | [employer] [place] | [id number] | | | | Indemn | | | COMMUN | | [phone]-Pr | | | ity | | | ITY | | esent | | | | | | CARE | | | | | | + +--------+ +--------+-------+---------+--------+ + +--------+ +--------+ + + | Guarantor Name | Accoun | Relation to | Date | Phone | Billing Address | | | t Type | Patient | of | | | | | | | | | | + +--------+ +--------+ + + | Tristen eLvy | Person | Self [birth year] | [address] | | | al/Fam | | 1941 | [phone] | [place] | | | [place] | | | [address] (Home) | [address] | + +--------+ +--------+ + + Advance Directives + + + + + | Type | Date Recorded | Patient | Explanation | | | | Diamond Setter | | + + + + + | Power of | | | | | Masonry Contractor | | | | + + + + + | Advance | 08/21/2018 10:30 | | | | Directive | AM | | | + + + + + + + + + + | Code Status | Date | Date | Comments | | | Activated | Inactivated | | + + + + + | Full Code | 08/21/2018 | 08/21/2018 | | | | 1:02 PM | 4:06 PM | | + + + + +
--- OUTSIDE RECORDS SUMMARY | ~2019-12-22 | XMS | Encounter Summary ---
Demographics + + + | Address | [address] | | | [place] [address] | + + + | Home Phone | | + + + | Preferred Language | Unknown | + + + | Marital Status | | + + + | Mormon Affiliation | 1077 | + + + | Race | White | + + + | Ethnic Group | Not or | + + + Author + + + | Author | [facility] | | | and [place] | + + + | Organization | [facility] | | | [...] [place], [place] | | | | | [address] | | + + + + + Care Team Providers + +------+ + | Care Executive Assistant To General Counsel Name | Role | Phone | + +------+ + PCP | Unavailable | + +------+ + Encounter Details +--------+ + + + + | Date | Type | Department | Care Team | Description | +--------+ + + + + | 04/04/ | Hospital | [facility] | Zeus Sanz MD | | | 2002 - | Encounter | CENTER SURGICAL [address] | [address] | | | | | [place] | [address] [place], | | | 04/06/ | | [place] | [place] [address] | | | 2002 | | [address] | [phone] | | | | | [phone] | | | +--------+ + + + [...] Visit Diagnoses Not on filedocumented in this encounter"
--- OUTSIDE RECORDS SUMMARY | ~2019-12-22 | XMS | Encounter Summary ---
Demographics + + + | Address | [address] | | | [place] [address] | + + + | Home Phone | | + + + | Preferred Language | Unknown | + + + | Marital Status | | + + + | Religion Affiliation | 1077 | + + + | Race | White | + + + | Ethnic Group | Not or | + + + Author + + + | Author | [facility] | | | and [place] | + + + | Organization | [facility] | | | and [...] [place], [place] | | | | | [address] | | + + + + + Care Team Providers + +------+ + | Care High School Assistant Principal Name | Role | Phone | + +------+ + PCP | Unavailable | + +------+ + Encounter Details +--------+ + + + + | Date | Type | Department | Care Team | Description | +--------+ + + + + | 09/08/ | Hospital | C GENERIC OP | Gavin Clinton | Pain in joint, lower | | 1999 | Encounter | CONVERSION DEP [address] | [place] [address] | leg | | | | [address] | [place], [place] | | | | | [place], [place] | [address] | | | | | [address] | | | | | | [phone] | | | +--------+ + + + [...] + | Diagnosis | + + | Pain in joint, lower leg | + + documented in this encounter"
--- OUTSIDE RECORDS SUMMARY | ~2019-12-22 | XMS | Encounter Summary ---
Demographics + + + | Address | [address] | | | [place] [address] | + + + | Home Phone | | + + + | Preferred Language | Unknown | + + + | Marital Status | | + + + | Alevism Affiliation | 1077 | + + + | Race | White | + + + | Ethnic Group | Not or | + + + Author + + + | Author | [facility] | | | and [place] | + + + | Organization | [facility] | | | [...] [place], [place] | | | | | [address] | | + + + + + Care Team Providers + +------+ + | Care Pediatric Urologist Name | Role | Phone | + [...] [address]en [address] | | | | | [place], [place] | [place] [address] | | | | | [address] | [phone] | | | | | [phone] | | | +--------+ + + + [...]
--- OUTSIDE RECORDS SUMMARY | ~2019-12-22 | XMS | Encounter Summary ---
Demographics + + + | Address | [address] | | | [place] [address] | + + + | Home Phone | | + + + | Preferred Language | Unknown | + + + | Marital Status | | + + + | Pentecostalism Affiliation | 1077 | + + + | Race | White | + + + | Ethnic Group | Not or | + + + Author + + + | Author | [facility] | | | and [place] | + + + | Organization | [facility] | | | and [...] [place], [place] | | | | | [address] | | + + + + + Care Team Providers + +------+ + | Care Impress Associate Name | Role | Phone | + +------+ + PCP | Unavailable | + +------+ + Encounter Details +--------+ + + + + | Date | Type | Department | Care Team | Description | +--------+ + + + + | 04/01/ | Hospital | C GENERIC OP | Zeus Sazn MD | PREOP CARDIOVASC | | 2002 | Encounter | CONVERSION DEP [address] | [address] | EXAM | | | | [address] | [address] [place], | | | | | [place], [place] | [place] [address] | | | | | [address] | [phone] | | | | | [phone] | | | +--------+ + + + [...] + | Diagnosis | + + | Pre-operative cardiovascular examination | + + documented in this encounter"
--- OUTSIDE RECORDS SUMMARY | ~2019-12-22 | XMS | Encounter Summary ---
Demographics + + + | Address | [address] | | | [place] [address] | + + + | Home Phone | | + + + | Preferred Language | Unknown | + + + | Marital Status | | + + + | Bahai Affiliation | 1077 | + + + | Race | White | + + + | Ethnic Group | Not or | + + + Author + + + | Author | [facility] | | | and [place] | + + + | Organization | [facility] | | [...] [place], [place] | | | | | [address] | | + + + + + Care Team Providers + +------+ + | Care Tooth Cutter Contact Wheel Name | Role | Phone | + [...] Encounter | CONVERSION DEP [address] | [address] | | | | | [place] | [address] [place], | | | | | [place], [place] | [place] [address] | | | | | [address] | [phone] | | | | | [phone] | | | +--------+ + + + [...]
--- OUTSIDE RECORDS SUMMARY | ~2019-12-22 | XMS | Encounter Summary ---
Demographics + + + | Address | [address] | | | [place] [address] | + + + | Home Phone | | + + + | Preferred Language | Unknown | + + + | Marital Status | | + + + | Congregational Affiliation | 1077 | + + + | Race | White | + + + | Ethnic Group | Not or | + + + Author + + + | Author | [facility] | | | and [place] | + + + | Organization | [facility] | | | [...] [place] | | | | | [address] | | + + + + + Care Team Providers + +------+ + | Care Neurology Technologist Name | Role | Phone | + [...] | | | | | | | [place] [facility] | | | | | | [...] + + | 08/21/ | Hospital | [facility] | Landon Bernard | | | 2019 | Encounter | MED CTR OR INTRA OP | [place] [address] | | | | | [address] | [place] | | | | | [place] | [place] [address] | | | | | [address] | [phone] | | | | | [phone] | | | +--------+ + + + [...] symptoms, immediately call your eye doctor or [facility] at (dial "9" after hours [...] by: Landon Bernard MD, 08/21/2018 12:30 [facility] documented in t his encounter Miscellaneous Notes Op Note - Landon Bernard MD - 08/21/2018 12:57 PM PDTPre-op Diagnosis: 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
--- OUTSIDE RECORDS SUMMARY | ~2019-12-22 | XMS | Encounter Summary ---
Demographics + + + | Address | [address] | | | [place] [address] | + + + | Home Phone | | + + + | Preferred Language | Unknown | + + + | Marital Status | | + + + | Samaritan Affiliation | 1077 | + + + | Race | White | + + + | Ethnic Group | Not or | + + + Author + + + | Author | [facility] | | | and [place] | + + + | Organization | [facility] | | | [...] [place], [place] | | | | | [address] | | + + + + + Care Team Providers + +------+ + | Care Assistant Professor Of Mathematics Name | Role | Phone | + +------+ + PCP | Unavailable | + +------+ + Encounter Details +--------+ + + + + | Date | Type | Department | Care Team | Description | +--------+ + + + + | 05/15/ | Hospital | [facility] | Zeus Sanz MD | | | 2002 | Encounter | CONVERSION DEP [address] | [address] | | | | | [place] | [address] [place], | | | | | [place], [place] | [place] [address] | | | | | [address] | [phone] | | | | | [phone] | | | +--------+ + + + [...]
--- OUTSIDE RECORDS SUMMARY | 2019-12-22 23:04 | XMS ---
PreManage Notification: MARTIN ZEPEDA Security Machine Tool Mechanic Events No recent Security Events currently on file CRITERIA MET - [facility] - [facility] - 2 Visits in 30 Days CARE PROVIDERS DANIEL VEGA Dentist: Grader Marker 05/21/2019-Current [place]EL[place] PHONE: [phone] Daniel Vega Orthopaedic Surgery 05/21/2019-Current PHONE: [phone] [facility] has no Care Guidelines for this patient. Care History Medical/Surgical 05/21/2019 [facility] \T\middot;\T\nbsp; PATIENT IS A -RECEIVES SERVICES THROUGH [place] IN [place]. \T\middot;\T\nbsp; Location: [address], [place] [address]- E.D. VISIT COUNT (12 MO.) 3 RICKY Sen TOTAL 3 NOTE: Visits indicate total known visits. ED/UCC VISIT TRACKING (12 MO.) 12/22/2019 23:03 [facility] [place] TYPE: Emergency COMPLAINT: - ABD PAIN/SOB 11/29/2019 09:59 [facility] [place] TYPE: Emergency COMPLAINT: - WOUND CHECK DIAGNOSES: - Morbid (severe) obesity due to excess calories - Cellulitis of left lower limb - terminal block assembler (current) use of aspirin - Essential (primary) hypertension - Allergy status to other drugs, medicaments and biological sub - Other snf (current) drug therapy 05/20/2019 07:39 [facility] [place] TYPE: Emergency COMPLAINT: - SWOLLEN TESTICLES DIAGNOSES: - Inflammatory disorders of scrotum - Morbid (severe) obesity due to excess calories - correction (current) use of aspirin - Personal history of nicotine dependence - Testicular pain, unspecified - Bilateral inguinal hernia, without obstruction or gangrene, n - Other tank terminal gauger (current) drug therapy INPATIENT VISIT TRACKING (12 MO.) 06/14/2019 06:00 [facility] [place] TYPE: Urology DIAGNOSES: - Other specified disorders of the male genital organs [facility]2019 [facility] DIAGNOSES: - Cellulitis, unspecified - Scrotal abscess, Inguinal Hernia - Cellulitis of other sites [id number]
--- NOTE | 2019-12-23 13:14 | EKG ---
[facility] [address] [facility] [place] [address] Signed Sinus tachycardia Indeterminate axis Incomplete right bundle branch block Possible Right ventricular hypertrophy Inferior infarct , age undetermined Abnormal ECG No previous ECGs available Confirmed by YANI GROSSMAN MD ([id number]) on 12/23/2019 1:13:58 PM Electronically Signed By: YANI GROSSMAN MD 12/23/19 1314 PATIENT NAME: MARTIN ZEPEDA Electrocardiogram DATE OF : 42 PHYSICIAN: YANI GROSSMAN MD REPORT #: [id number] REPORT IS CONFIDENTIAL AND NOT TO BE RELEASED WITHOUT AUTHORIZATION
== END 2019-12-23 04:00 | disposition short-term general hospital (02) ==
LOC: ED 23:03
DX: A41.9 Sepsis, unspecified organism (principal); J18.9 Pneumonia, unspecified organism; R65.20 Severe sepsis without septic shock; I10 Essential (primary) hypertension; E66.01 Morbid (severe) obesity due to excess calories; Z87.891 Personal history of nicotine dependence; Z79.899 Other long term (current) drug therapy; Z79.82 Long term (current) use of aspirin
CPT/HCPCS: 36600; 70450; 71045; 80053; 82803; 83605; 83880; 84484; 85025; 85610; 85730; 93005; 93010; 94644; 94660; 96365; 96366; 96368; 96375; 99291; 99292; J0456; J0696; J2930; J7030; J7060

== ENCOUNTER 2021-04-01 12:53 | Emergency (ER) | payer MEDICARE ==
[~2021-04-01] VITALS: Ht 172.7 cm; Wt 162.8 kg
[~2021-04-01 12:53] MED LIST changes: +CEPHALEXIN500 M1 PO; +VICODIN HP 10-1 EAC1 PO
--- OUTSIDE RECORDS SUMMARY | 2021-04-01 12:56 | XMS ---
PreManage Notification: MARTIN ZEPEDA Security Associate Medical Director Events No recent Security Events currently on file CRITERIA MET - [facility] LUISA CHUN Physical Medicine \T\ Rehabilitation Current PHONE: [phone] DANIEL VEGA Dentist: Aesthetician 05/21/2019-Current [place] PHONE: [phone] Daniel Vega Orthopaedic Surgery 05/21/2019-Current PHONE: [phone] [facility] has no Care Guidelines for this patient. Care History Medical/Surgical 05/21/2019 [facility] \T\middot;\T\nbsp; PATIENT IS A -RECEIVES SERVICES THROUGH [facility] [place]. \T\middot;\T\nbsp; Location: [address], [place] [address]- EDevyn VISIT COUNT (12 MO.) 2 RICKY Sen TOTAL 2 NOTE: Visits indicate total known visits. ED/UCC VISIT TRACKING (12 MO.) 04/01/2021 12:54 [facility] [place] TYPE: Emergency COMPLAINT: - R FLANK PAIN 02/15/2021 11:[address] [facility] [place] TYPE: Emergency COMPLAINT: - POSS UTI, RECTUM PAIN DIAGNOSES: - Urinary tract infection, site not specified - Essential (primary) hypertension - Personal history of nicotine dependence - Morbid (severe) obesity due to excess calories - Other medical terminologist (current) drug therapy - Pure hypercholesterolemia, unspecified - [facility] (current) use of aspirin - Dysuria INPATIENT VISIT TRACKING (12 MO.) No inpatient visits to display in this time frame [email or web address]
[2021-04-01] MEDS ORDERED: METHOCARBAMOL750 MG PO (14:26)
== END 2021-04-01 20:14 | disposition short-term general hospital (02) ==
LOC: ED 12:53
DX: N20.2 Calculus of kidney with calculus of ureter (principal); Z87.442 Personal history of urinary calculi; E78.00 Pure hypercholesterolemia, unspecified; I10 Essential (primary) hypertension; E66.01 Morbid (severe) obesity due to excess calories; Z87.891 Personal history of nicotine dependence; Z79.899 Other long term (current) drug therapy; Z79.82 Long term (current) use of aspirin; Z20.822 Contact with and (suspected) exposure to COVID-19
CPT/HCPCS: 74176; 80048; 81001; 85025; 96374; 96375; 96376; 99285-25; C9803; J0696; J1170; J2405; J7030; U0003

== ENCOUNTER 2023-12-15 14:22 | Emergency (ER) | payer OTHER, MEDICARE ==
[~2023-12-15] VITALS: Ht 172.7 cm; Wt 161.0 kg
[~2023-12-15 14:22] MED LIST changes: +METHOCARBAMOL750 MG PO
[2023-12-15 14:44] LABS: BASOPHILS 0.3 % (0-2); EOSINOPHILS 0.3 % (0-6); HEMATOCRIT 39.6 % (35.0-50.0); LYMPHOCYTES 45.3 % (24-44); MCH 27.6 (27-36); MCV 83.6 fl (81-99); MONOCYTES 10.8 % (0-12); NEUTROPHILS 43.3 % (39-80); PLATELET COUNT 111 K/uL (140-440); RBC 4.73 M/ul (4.3-5.7); RDW 15.7 (10.5-15.0)
[2023-12-15] MEDS ORDERED: methylPREDNISolone SOD SUCC 125 MG/2 ML VIAL IV ONE (14:45)
[2023-12-15] MEDS ORDERED: ALBUTEROL/IPRATROPIUM 3 ML NEB INH ONE (14:45)
[2023-12-15 15:06] LABS: ALBUMIN 2.7 g/dL (3.4-5.0); ALBUMIN/GLOBULIN RATIO 0.63 (1.1-2.4); ANION GAP 13.1 (7-21); BILIRUBIN, TOTAL 0.3 ng/dL (0.2-1.0); BUN/CREATININE RATIO 11.72 (6.0-28.6); CALCIUM 8.3 mg/dL (8.5-10.1); CREATININE, SERUM 1.45 mg/dL (0.70-1.30); POTASSIUM 4.1 mmol/L (3.5-5.1)
[2023-12-15 15:30] LABS: INFLUENZA B NAA NEGATIVE (NEGATIVE); RESPIRATORY SYNCYTIAL VIR NAA NEGATIVE (NEGATIVE)
[2023-12-15] MEDS ORDERED: PREDNISONE20 MG PO (16:05)
[2023-12-15] MEDS ORDERED: VENTOLIN HFA18 GM INH (16:05)
[2023-12-15 16:45] VITALS: BP 156/54
--- NOTE | 2023-12-15 22:21 | EKG ---
[facility] [address] 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
== END 2023-12-15 16:12 | disposition home or self-care (01) ==
LOC: ED 14:22
PROVIDERS: Emergency Medicine
DX: U07.1 COVID-19 (principal); I10 Essential (primary) hypertension; E66.01 Morbid (severe) obesity due to excess calories; J44.9 Chronic obstructive pulmonary disease, unspecified; Z87.891 Personal history of nicotine dependence; Z79.82 Long term (current) use of aspirin; Z79.899 Other long term (current) drug therapy
CPT/HCPCS: 36415; 71045; 80053; 83880; 84484; 85025; 85060; 87502; 93005; 93010; 94640; 94667; 96374; 99285-25; J2919; U0002

== ENCOUNTER 2023-12-19 14:16 | Inpatient (IN) | payer OTHER, MEDICARE ==
[~2023-12-19] VITALS: Ht 172.7 cm; Wt 160.0 kg
[~2023-12-19 14:16] MED LIST changes: +PREDNISONE20 MG PO; +SIMVASTATIN20 MG PO; -SIMVASTATIN5 MG PO; +VENTOLIN HFA18 GM INH
[2023-12-19] MEDS ORDERED: HYDROCODON-ACE1 EAC8 PO (14:28)
[2023-12-19] MEDS ORDERED: ALBUTEROL SULFATE 0.5% 2.5 MG/0.5 ML VIAL ONE (14:41)
[2023-12-19 14:44] LABS: BASOPHILS 0.4 % (0-2); HEMATOCRIT 40.2 % (35.0-50.0); HEMOGLOBIN 13.4 g/dL (12.0-18.0); LYMPHOCYTES 20.6 % (24-44); MCH 27.8 (27-36); MCHC 33.4 g/dl (30-36); MCV 83.5 fl (81-99); MONOCYTES 6.3 % (0-12); NEUTROPHILS 72.7 % (39-80); PLATELET COUNT 135 K/uL (140-440); RBC 4.82 M/ul (4.3-5.7); RDW 15.5 (10.5-15.0)
[2023-12-19] MEDS ORDERED: IPRATROPIUM BROMIDE 2.5 ML VIAL INH ONE (14:45)
[2023-12-19] MEDS ORDERED: ALBUTEROL SULFATE 0.5% 2.5 MG/0.5 ML VIAL INH ONE (15:00)
[2023-12-19 15:03] LABS: ALBUMIN 2.7 g/dL (3.4-5.0); ALBUMIN/GLOBULIN RATIO 0.61 (1.1-2.4); ANION GAP 12.7 (7-21); BILIRUBIN, TOTAL 0.5 ng/dL (0.2-1.0); BUN/CREATININE RATIO 16.77 (6.0-28.6); CALCIUM 8.4 mg/dL (8.5-10.1); CREATININE, SERUM 1.49 mg/dL (0.70-1.30); POTASSIUM 3.7 mmol/L (3.5-5.1); PROTEIN, TOTAL 7.1 g/dL (6.4-8.2)
[2023-12-19 15:28] LABS: INFLUENZA B NAA NEGATIVE (NEGATIVE); RESPIRATORY SYNCYTIAL VIR NAA NEGATIVE (NEGATIVE)
[2023-12-19] MEDS ORDERED: ENOXAPARIN SODIUM 40 MG/0.4 ML SYR SUB-Q SCH (16:13)
[2023-12-19] MEDS ORDERED: ondansetron HCL 4 MG/2 ML VIAL IV PRN (16:15)
[2023-12-19] MEDS ORDERED: ACETAMINOPHEN 500 MG TAB PO PRN (16:15)
[2023-12-19] MEDS ORDERED: VENTOLIN HFA18 GM INH (16:30)
[2023-12-19] MEDS ORDERED: ALBUTEROL SULFATE 0.083% 3 ML VIAL INH PRN (16:45)
--- NOTE | 2023-12-19 17:00 | NUR ---
PT TO FLOOR WITH DIONI BROWN AND DTR CARLITA. PT IN BED ANSWERING QUESTIONS WITH HELP OF DTR. VERY HARD OF HEARING. IV FLUSHED AND DRAWS BACK BLOOD. VS STABLE. ON RA, THOUGH WEARS 3LNC AT NIGHT INSTEAD OF CPAP, CLAUSTERPHOBIC.
[2023-12-19 17:32] VITALS: BP 111/90
--- NOTE | 2023-12-19 18:02 | NUR ---
PT CALLS TO USE BATHROOM, STATES HE CANNOT USE A URINAL. PT AMBULATES WITH SBA AND FWW, SITS TO URINATE. AMBULATING BACK TO BED PT OXYGEN SATURATION IS AT 87% WITH SOB. PT SITS ON EDGE OF BED TO CATCH HIS BREATH, OXYGEN SATURATION RETURNS TO 97% WITHIN ONE MINUTE. PT GETS HIMSELF BACK INTO BED, STATES NO OTHER NEEDS AT THIS POINT. CALL LIGHT AND PERSONAL BELONGINGS IN REACH.
--- NOTE | 2023-12-19 19:26 | NUR ---
Received report from DIONI Hough. Pt resting in bed, denies needs. Noted [place]. Call light within reach.
[2023-12-19 19:59] VITALS: BP 115/43
[2023-12-19] MEDS ORDERED: ALBUTEROL/IPRATROPIUM 3 ML NEB INH SCH (20:00)
--- NOTE | 2023-12-19 20:00 | NUR ---
Pt up in recliner. VSS. Denies pain. Pt is very [place]. LS dim t/o. Tolerating RA. Denies SOB or cough. HRR but distant. 1+ edema to BLE. BLE jase and dry. pt reports fecal inc, has own Depends in place. LBM today per pt report. Pt uses BR to void, missed hat on previous use. Ambulates in room w/ own 4WW. Precautions in place for Covid (+). Call light within reach.
[2023-12-19] MEDS ORDERED: AZITHROMYCIN 250 MG TAB PO SCH (20:45)
[2023-12-19] MEDS ORDERED: lisinopriL 10 MG TAB PO SCH (20:47)
[2023-12-19] MEDS ORDERED: predniSONE 20 MG TAB PO SCH (20:49)
[2023-12-19] MEDS ORDERED: CEFTRIAXONE/SODIUM CHLORIDE 2 GM/100 ML PIGGYBACK IV SCH (21:00)
[2023-12-19] MEDS ORDERED: HYDROCODONE/APAP 10/325 1 TAB PO PRN (21:00)
[2023-12-19] MEDS ORDERED: MELATONIN 3 MG TAB PO PRN (21:00)
[2023-12-19 21:07] VITALS: BP 115/43
--- NOTE | 2023-12-19 21:39 | NUR ---
Pt resting in bed. New HS meds ordered by and administered. IV ATB infusing. Denies any further needs.
--- NOTE | 2023-12-19 22:04 | NUR ---
Pt resting comfortably in bed. CPOX applied per orders. IV ATB completed.
--- NOTE | 2023-12-19 22:46 | NUR ---
Pt awake, denies needs. Call light within reach.
[2023-12-20] VITALS (10 sets, daily range): BP systolic 112–132; BP diastolic 45–63
--- NOTE | 2023-12-20 00:26 | NUR ---
Pt up in recliner sleeping. Breathing even and unlabored. Call light within reach.
--- NOTE | 2023-12-20 01:38 | NUR ---
Pt awake, restless in bed. Assisted to BR, Depends changed, cheryl-care provided and barrier cream applied. Pt used toilet to void, missed hat. Assisted back to recliner. O2 sats 89% w/ activity. O2 at 1L N/C, sats mid 90's when resting. Call light within reach.
--- NOTE | 2023-12-20 03:50 | NUR ---
Pt slept intermittently-switched frequently from bed to recliner. Has 1L O2 N/C in place. CPOX on. LS dim. No SOB. Pt voids in BR. Wears own Depends for fecal inc. BLE 1+ edema, jase. Uses 4WW, SBA. RAC IV in place. Airborne precautions for Covid (+).
--- NOTE | 2023-12-20 04:45 | NUR ---
Pt sleeping on left side in bed. O2 sats mid 90's on 1L O2. Call light within reach.
--- NOTE | 2023-12-20 04:48 | NUR ---
daughter dontae called and asked for pt update, daughter not on contact list-pt awake and gave verbal okay to give daughter dontae update-primary rn on phone with daughter.
[2023-12-20 05:31] LABS: BASOPHILS 0.5 % (0-2); HEMATOCRIT 38.4 % (35.0-50.0); HEMOGLOBIN 12.4 g/dL (12.0-18.0); LYMPHOCYTES 17.4 % (24-44); MCHC 32.4 g/dl (30-36); MCV 83.3 fl (81-99); MONOCYTES 2.8 % (0-12); NEUTROPHILS 79.3 % (39-80); PLATELET COUNT 137 K/uL (140-440); RBC 4.61 M/ul (4.3-5.7); RDW 15.9 (10.5-15.0)
[2023-12-20 05:42] LABS: ANION GAP 14.3 (7-21); BUN/CREATININE RATIO 14.46 (6.0-28.6); CALCIUM 8.4 mg/dL (8.5-10.1); CREATININE, SERUM 1.59 mg/dL (0.70-1.30); MAGNESIUM 1.8 mg/dL (1.8-2.4); POTASSIUM 4.3 mmol/L (3.5-5.1)
--- NOTE | 2023-12-20 05:53 | NUR ---
Pt up in recliner sipping on coffee. Reports feeling better this AM. LSC dim to bases. O2 sats 94% on 1L O2. Call light within reach.
--- NOTE | 2023-12-20 06:29 | NUR ---
PRODUCE ASSISTANT CLEAN UP PT FROM BM AND PUT A NEW PULL UP ON.
--- NOTE | 2023-12-20 07:39 | NUR ---
REPORT RECEIVED FROM NIGHT RN - PT RESTING IN BED AWAKE WITH HOB ELEVATED WATCHING TV. DENIES NEEDS AT THIS TIME. CALL LIGHT IN REACH.
[2023-12-20] MEDS ORDERED: FUROSEMIDE 40 MG/4 ML VIAL IV SCH (09:00)
[2023-12-20] MEDS ORDERED: NIRMATRELVIR PO SCH (09:00)
[2023-12-20] MEDS ORDERED: DEXTROSE 50% 50 ML SYR IV PRN ×2 (09:00)
[2023-12-20] MEDS ORDERED: GLUCAGON,HUMAN RECOMBINANT 1 MG/ML VIAL SUB-Q PRN (09:00)
[2023-12-20] MEDS ORDERED: RITONAVIR PO SCH (09:00)
[2023-12-20] MEDS ORDERED: DEXTROSE 5% 1,000 ML IV PRN (09:00)
[2023-12-20] MEDS ORDERED: IBLOOD GLUCOSE TEST STRIP 1 EA TEST XX PRN (09:00)
[2023-12-20] MEDS ORDERED: [UNRECOGNIZED DRUG - OTHER] PO SCH (09:00)
--- NOTE | 2023-12-20 09:00 | NUR ---
ASSESSMENT COMPLETE - PT AWAKE AND ALERT, LUNG SOUNDS DIM AND COARSE, SPO2 ON ROOM AIR STABLE. CPOX IN PLACE. NEB TX IN PROGRESS. PT AMBULATED SELF BACK TO BED FOR ECHO. DENIES NEEDS AT THIS TIME. PT EDUCATED ON 2G SODIUM DIET. CALL LIGHT IN REACH.
--- NOTE | 2023-12-20 09:31 | NUR ---
UR CLINICAL REVIEW: 2MN NU MEDICARE INPT: 12/19/23 @ 1615 ORDER MATCHES REG NO AUTH REQUIRED PER MEDICARE RULES PLAN TO DC TO HOME WHEN STABLE.
--- NOTE | 2023-12-20 10:10 | NUR ---
RN ROUNDING ON PT - PT IN BED WITH OT IN ROOM. DENIES NEEDS AT THIS TIME. CALL LIGHT IN REACH.
--- NOTE | 2023-12-20 10:18 | NUR ---
PT NOT AVAILABLE FOR VISIT. PROVIDED PRAYER.
[2023-12-20] MEDS ORDERED: INSULIN LISPRO 100 UNIT/ML ML SUB-Q SCH (12:00)
[2023-12-20] MEDS ORDERED: PHARMACY RENAL DOSE ADJUSTMENT 1 DOSE MISC PO SCH (12:00)
--- NOTE | 2023-12-20 12:15 | NUR ---
PATIENT ALERT AND ORIENTED, GRANDDAUGHTER AND SPOUSE IN ROOM. VERIFIED DEMOGRAPHICS. PATIENT LIVES IN HOUSE WITH , HAS STAIRS AND HE DOES HAVE DIFFICULTY WITH THEM. GRANDDAUGHTER STATES THEY ARE CURRENTLY WORKING WITH THE [facility] TO INSTALL RAMP AND GRAB BARS IN THE HOME. PATIENT HAS OXYGEN HE WEARS AT NIGHT THROUGH NORCO, WALKER, POWER CHAIR AND CANE. HIS DAUGHTER AND GRANDDAUGHTER LIVE CLOSE AND ARE WILLING TO HELP PATIENT AND HIS SPOUSE. PATIENT STATES HE STILL DRIVES AND HAS NO FINANCIAL HARDSHIP. PT WORKED WITH PATIENT AND IS RECOMMENDING OUTPATIENT PT. WILL SEND INFORMATION TO HIS PCP AT THE [place] FOR REFERRAL FOR OUTPATIENT PT.
--- NOTE | 2023-12-20 13:00 | NUR ---
PT UP IN CHAIR EATING LUNCH, FAMILY AT SIDE VISITING. PT DENIES NEEDS AT THIS TIME.
--- NOTE | 2023-12-20 13:17 | NUR ---
CALLED [facility] TO [facility]. PATIENT'S PCP IS DR. MAGALIS GONZALES AND HE HAS AN APPOINTMENT 01/05/24 AT 1430 FOR LABWORK FOLLOWED BY APPOINTMENT WITH PHYSICIAN AT 1500.
--- NOTE | 2023-12-20 13:28 | NUR ---
PATIENT GIVEN ONE NORCO FOR 7/10 SOMATIC PAIN, PATIENT DESCRIBES "ALLOVER PAIN" DUE TO ARTHRITIS. ICE WATER PROVIDED WELL. NO OTHER NEEDS AT THIS TIME.
[2023-12-20] MEDS ORDERED: TERAZOSIN HCL2 MG PO (14:33)
[2023-12-20] MEDS ORDERED: PROMETHEGAN25 MG PR (14:36)
[2023-12-20] MEDS ORDERED: METHOCARBAMOL750 MG PO (14:37)
[2023-12-20] MEDS ORDERED: LIDOCAINE1 EACH TOP (14:40)
[2023-12-20] MEDS ORDERED: GLUCOSE4 GM PO (14:46)
--- NOTE | 2023-12-20 14:48 | NUR ---
medications reconciled [facility]
--- NOTE | 2023-12-20 14:57 | NUR ---
PT SITTING ON COUCH NEXT TO VISITING. SP02 >92% ON ROOM AIR. CPOX IN PLACE. ASSESSMENT UNCHANGED. DAUGHTER ALSO IN ROOM. PT DENIES NEEDS AT THIS TIME. CALL LIGHT IN REACH.
--- NOTE | 2023-12-20 16:00 | NUR ---
PT BACK TO BED TO REST - 3L [address]. CPOX IN PLACE. CALL LIGHT IN REACH. HEAT INCREASED IN ROOM PER PT REQUEST.
[2023-12-20] MEDS ORDERED: IBLOOD GLUCOSE TEST STRIP 1 EA TEST VI SCH (17:00)
--- NOTE | 2023-12-20 17:42 | EKG ---
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
--- NOTE | 2023-12-20 18:44 | NUR ---
PT RESTING IN CHAIR AFTER DINNER WATCHING TV - UNEVENTFUL SHIFT WITH SUSTAINED SP02 >92% WHILE AWAKE ON ROOM AIR. PT CONTINUES TO NEED 3L 02 WHILE SLEEPING WHICH IS CHRONIC FOR HIM. PT INDEPENDENT WITH BATHROOM CARES. VS STABLE. PT NOTED TO REQUEST PRN NORCO ONCE THIS SHIFT, OF WHICH HE NOTICED DECREASED SP02 WHILE SLEEPING AND STATES HE IS GOING TO AVOID TAKING ANY UNTIL IMPROVED RESPIRATORY STATUS.
--- NOTE | 2023-12-20 19:31 | NUR ---
Received report from DIONI Mccormick. Pt up in recliner. White board updated.
--- NOTE | 2023-12-20 20:00 | NUR ---
Pt up in recliner. Uses call light appropriately. Reports chronic generalized pain, declines offer of pain med at this time. Very [place]. VSS. LS dim to bases w/ crackles. Denies SOB. Noted w/ occasional dry cough, non-productive. HRR. BLE jase, cool, 1+ edema. Pt wears own depends for B&FoundationDB. RAC SL, reports some burning with HS ATB admin, but IV looks WNL. Airborne precautions in place for Covid (+). Ambulates to BR w/ 4WW ind, pt able to manage O2 tubing and disconnect/reconnect CPOX.
[2023-12-20] MEDS ORDERED: ENOXAPARIN SODIUM 40 MG/0.4 ML SYR SUB-Q SCH (21:00)
--- NOTE | 2023-12-20 21:45 | NUR ---
Pt assisted to BR, pt able to do own hygiene. Call light within reach.
--- NOTE | 2023-12-20 22:15 | NUR ---
Pt resting in bed, watching TV. Denies needs. Call light within reach.
[2023-12-21] VITALS (7 sets, daily range): BP systolic 129–140; BP diastolic 42–68
--- NOTE | 2023-12-21 00:26 | NUR ---
Pt asleep. O2 sats 95% on 3L O2. Call light within reach.
--- NOTE | 2023-12-21 01:56 | NUR ---
Pt sound asleep. O2 sats 98% on 3L. Appears comfortable. Call light witin reach.
--- NOTE | 2023-12-21 03:30 | NUR ---
Noted that HS dose of 3 units of insulin for BG 312 was incorrect. Sliding scale order for insulin calls for 4 units of insulin. Pt's BG rechecked, BG 152. Dr. Sullivan notified, no further orders.
--- NOTE | 2023-12-21 04:34 | NUR ---
Up in chair. Pt requested coffee this AM-provided. O2 sats 98% on 3L O2. No further needs identified. Call light within reach.
--- NOTE | 2023-12-21 05:45 | NUR ---
Pt de sattting to 84%, in to pt room, pt sleeping soundly on left side. Repositioned to supine, HOB >45. Enc pt to deep breathe and cough. Noted w/ hacking productive cough. O2 increased to 6L/min NC. O2 sats 88-89%.
--- NOTE | 2023-12-21 06:27 | NUR ---
Pt w/ O2 desats again to 80%. Pt had O2 off when I entered room. O2 replaced. Pt deep breathe and coughing multiple times. Tele mon O2 sensor changed to CPOX, O2 sat 87% on 6L. HOB elevated.
--- NOTE | 2023-12-21 06:37 | NUR ---
Pt currently on 5L O2. O2 sats 89-90%
--- NOTE | 2023-12-21 06:46 | NUR ---
Pt back in bed, resting. Reports generalized aching, requesting PRN Argillite-administered. O2 sat 99% on 3L. Call light within reach.
--- NOTE | 2023-12-21 07:10 | NUR ---
Pt report received from DIONI Godinez. Pt is resting supine in bed with HOB elevated, breathing is regular, even, and non-labored. Television is on with volume high. Call light in reach, white board updated.
[2023-12-21 08:23] LABS: BASOPHILS 0.1 % (0-2); EOSINOPHILS 0.1 % (0-6); HEMATOCRIT 37.8 % (35.0-50.0); HEMOGLOBIN 12.4 g/dL (12.0-18.0); LYMPHOCYTES 18.1 % (24-44); MCH 27.4 (27-36); MCHC 32.9 g/dl (30-36); MCV 83.3 fl (81-99); MONOCYTES 5.8 % (0-12); NEUTROPHILS 75.9 % (39-80); PLATELET COUNT 151 K/uL (140-440); RBC 4.54 M/ul (4.3-5.7); RDW 15.8 (10.5-15.0)
[2023-12-21 08:31] LABS: ANION GAP 8.7 (7-21); BUN/CREATININE RATIO 21.42 (6.0-28.6); CALCIUM 8.6 mg/dL (8.5-10.1); CREATININE, SERUM 1.54 mg/dL (0.70-1.30); POTASSIUM 3.7 mmol/L (3.5-5.1)
--- NOTE | 2023-12-21 10:21 | NUR ---
SPOKE WITH RT KOADK, AND DR. BELCHER REGARDING NEED FOR NEBULIZER. WILL SEND CLINICALS AND ORDER TO [place].
[2023-12-21] MEDS ORDERED: CARBAMIDE PEROXIDE AU ONE (11:00)
--- NOTE | 2023-12-21 11:06 | NUR ---
PT NOT AVAILABLE FOR VISIT. PROVIDED PRAYER.
--- NOTE | 2023-12-21 14:48 | NUR ---
PT SITTING UP IN CHAIR WITH CALL LIGHT WITHIN REACH. NO REQUESTS AT THIS TIME.
--- NOTE | 2023-12-21 15:59 | NUR ---
REQUESTING TO SPEAK WITH CASE MANAGEMENT. CONCERNED NEW PRESCRIPTIONS WON'T BE SENT TO [facility]. REQUESTING NEW PRESCRIPTIONS AND MED LIST BE SENT TO [facility]. THIS INCLUDES NEBULIZER AND MEDS. DENIES OTHER NEEDS.
--- NOTE | 2023-12-21 17:48 | NUR ---
IN TO ADMINISTER MEDICATION, SEE MAR. PT SITTNG UP IN RECLINER FINISHING DINNER. PT RESPONDS WHEN ADDRESSED. PT REPORTING BEING FINISHED WITH MEAL, TRAY REMOVED. PT DENIES ANY OTHER NEEDS AT THIS TIME. CALL LIGHT IN REACH.
--- NOTE | 2023-12-21 19:34 | NUR ---
Received report from DIONI Donovan. Pt resting in bed, denies needs. Call light within reach.
--- NOTE | 2023-12-21 20:00 | NUR ---
Pt resting comfortably in bed. VSS. Uses call light appropriately. Reports pain 3/10, generalized. Denies offer of PRN pain med at this time. LS dim t/o w/ exp wheezes. Denies SOB. Noted w/ ongoing moist productive cough. CPOX placed for overnight, pt wants to wait to apply O2 r/t nares feeling dry. HRR. BLE jase, cool. 1+ edema. PPP. BTA. LBm 12/19. RAC SL infusing ATB per EMAR. Pt has some redness to skin folds, declined moisture barrier cream at this time. Nebs administered, tolerated well. HS BG 208-insulin administered per EMAR. Call light within reach.
--- NOTE | 2023-12-21 23:18 | NUR ---
Pt asleep on left side. O2 sats 90-91% on RA. Airborne precautions continue.
--- NOTE | 2023-12-22 01:24 | NUR ---
Pt awake, states difficulty sleeping r/t excited about going home today. Remains on RA, O2 sats 90-91%.
--- NOTE | 2023-12-22 02:40 | NUR ---
Pt sleeping, CPOX alarming. O2 sats 85%. 3L O2 NC applied.
--- NOTE | 2023-12-22 04:15 | NUR ---
Pt sleeping soundly. O2 3L in place, Sats high 90's. Appears comfortable. Call light within reach.
[2023-12-22 05:39] LABS: BASOPHILS 0.1 % (0-2); EOSINOPHILS 0.1 % (0-6); HEMATOCRIT 37.4 % (35.0-50.0); HEMOGLOBIN 12.4 g/dL (12.0-18.0); LYMPHOCYTES 22.3 % (24-44); MCH 27.7 (27-36); MCHC 33.1 g/dl (30-36); MCV 83.7 fl (81-99); MONOCYTES 6.5 % (0-12); PLATELET COUNT 157 K/uL (140-440); RBC 4.46 M/ul (4.3-5.7); RDW 15.5 (10.5-15.0)
[2023-12-22 05:50] LABS: BUN/CREATININE RATIO 22.15 (6.0-28.6); CALCIUM 8.9 mg/dL (8.5-10.1); CREATININE, SERUM 1.58 mg/dL (0.70-1.30)
[2023-12-22 06:16] VITALS: BP 100/38
--- NOTE | 2023-12-22 06:17 | NUR ---
WAXER OBTAINED VITALS AND INTAKE. NO NEW OUTPUT AT THIS TIME. PT STATES NO NEEDS AT THIS TIME. CALL LIGHT WITHIN REACH.
--- NOTE | 2023-12-22 06:47 | NUR ---
Pt up in recliner. O2 off for day, CPOX off. Denies needs. Call light within reach.
--- NOTE | 2023-12-22 07:10 | NUR ---
REPORT RECIEVED FROM BOSSMAN RN AND DIONI DUONG. PT SITTING UP IN RECLINER WATCHING TV. PT WAVES FROM RECLINER. PT DENIES ANY NEEDS AT THIS TIME AND STATES "I AM JUST WAITING FOR THE DOCTOR TO LET ME GO HOME WHENEVER HE GETS HERE." CALL LIGHT IN REACH.
--- NOTE | 2023-12-22 07:39 | NUR ---
NEBULIZER ORDERS FOR HOME USE SENT TO [facility]. OUT PT REFERRAL SENT TO [facility].MED LIST ALSO SENT TO [facility].
--- NOTE | 2023-12-22 08:50 | NUR ---
SPOKE TO PATIENT ABOUT THE DISCHARGE PLAN. [facility].THE [place] WRITER WILL FAX ALL ORDERS TO THE [facility]. THE PATIENT WILL BE DISCHARGED TODAY.
--- NOTE | 2023-12-22 08:59 | NUR ---
PATIENT IN CHAIR AT THIS TIME. CALL LIGHT WITHIN REACH, NO FURTHER NEEDS AT THIS TIME.
--- NOTE | 2023-12-22 09:38 | NUR ---
IN TO ADMINISTER MEDICATIONS, SEE MAR. PT SITTING UP IN RECLINER IN OWN CLOTHES. PT TAKES PO MEDICATIONS WITH NO ISSUES. PT REPORITNG PAIN 4/10 "GENERALIZED" PT DENIES PRN PAIN MEDICATION AT THIS TIME. IV FLUSHES WNL. ASSESSMENT COMPLETE. LUNG SOUNDS DIMINISHED IN RLL. CLEAR IN RUL, CASIMIRO AND LLL. BOWLE TONES ACTIVE. PT DENIES ABD PAIN OR TENDERNESS WITH PALPATION. PT DENIES ANY NUMBNESS OR TINGLING IN EXTREMITIES. PT STATES "I AM JUST ANXIOUS TO GET HOME." PT PROVIDED WATER. ANDRES GERMAN IN TO OBTAIN VITALS. PT DENIES ANY OTHER NEEDS FROM THIS RN. CALL LIGHT IN REACH.
[2023-12-22 09:47] VITALS: BP 127/80
[2023-12-22 10:07] VITALS: BP 127/80
[2023-12-22] MEDS ORDERED: CEFUROXIME500 MG PO (10:11)
[2023-12-22] MEDS ORDERED: PREDNISONE20 MG PO (10:12)
[2023-12-22] MEDS ORDERED: IPRAT-ALBUT 0.5-3 ML INH (10:16)
[2023-12-22] MEDS ORDERED: SYMBICORT 16010.2 GM INH (10:20)
[2023-12-22] MEDS ORDERED: CELEXA20 MG PO (11:07)
--- NOTE | 2023-12-22 11:30 | NUR ---
IN TO GO OVER DC INSTRUCTIONS. VERBAL AND WRITTEN INSTRUCTIONS PROVIDED. QUESTIONS ANSWERED. PT VERBALIZES UNDERSTANDING. IV REMOVED WNL. ANDRES MCCANN IN OBTAINING VITALS WHILE PT SITTING UP IN RECLINER. PTs DAUGHTER IN ROOM. [id number] PT WHEELED OUT OF ROOM TO VEHICLE IN WHEELCHAIR BY ANDRES MCCANN.
== END 2023-12-22 11:35 | disposition home or self-care (01) | DRG 177 ==
LOC: ED 14:16 → MS 16:31
PROVIDERS: Emergency Medicine; ADMIT Student in an Organized Health Care Education/Training Program; ATTEND Student in an Organized Health Care Education/Training Program
DX: U07.1 COVID-19 (principal); J18.9 Pneumonia, unspecified organism; J44.1 Chronic obstructive pulmonary disease with (acute) exacerbation; Z68.43 Body mass index [BMI] 50.0-59.9, adult; J44.0 Chronic obstructive pulmonary disease with (acute) lower respiratory infection; E78.5 Hyperlipidemia, unspecified; I10 Essential (primary) hypertension; R74.8 Abnormal levels of other serum enzymes; R73.03 Prediabetes; G89.29 Other chronic pain; E78.00 Pure hypercholesterolemia, unspecified; E66.01 Morbid (severe) obesity due to excess calories; L40.50 Arthropathic psoriasis, unspecified; Z98.890 Other specified postprocedural states; Z87.891 Personal history of nicotine dependence; Z90.49 Acquired absence of other specified parts of digestive tract; Z79.899 Other long term (current) drug therapy; Z79.82 Long term (current) use of aspirin
CPT/HCPCS: 36415; 71045; 80048; 80053; 83036; 83735; 83880; 84484; 85025; 87040; 87502; 93005; 93010; 93306; 94640; 94644; 94762; 97161; 97165; 97535; 99285-25; A9270; J0696; J1650; J1815; J1940; J7512; U0002

== ENCOUNTER 2024-07-19 09:50 | Emergency (ER) | payer OTHER, MEDICARE ==
[~2024-07-19] VITALS: Ht 172.7 cm; Wt 161.0 kg
[~2024-07-19 09:50] MED LIST changes: +CELEXA20 MG PO; +GLUCOSE4 GM PO; +HYDROCODON-ACE1 EAC8 PO; +IPRAT-ALBUT 0.5-3 ML INH; +LIDOCAINE1 EACH TOP; +PROMETHEGAN25 MG PR; +SYMBICORT 16010.2 GM INH
[2024-07-19] MEDS ORDERED: ELIQUIS5 MG PO (10:50)
[2024-07-19] MEDS ORDERED: LEVOTHYROXINE112 MC1 PO (10:50)
[2024-07-19 13:19] VITALS: BP 137/63
== END 2024-07-19 13:10 | disposition home or self-care (01) ==
LOC: ED 09:50
DX: J06.9 Acute upper respiratory infection, unspecified (principal); E78.00 Pure hypercholesterolemia, unspecified; E03.9 Hypothyroidism, unspecified; I10 Essential (primary) hypertension; E66.01 Morbid (severe) obesity due to excess calories; Z79.899 Other long term (current) drug therapy; Z79.51 Long term (current) use of inhaled steroids; Z87.891 Personal history of nicotine dependence
CPT/HCPCS: 71046; 84484; 99283-25